=== PATIENT | male | born 1950 | race Caucasian/White ===

== ENCOUNTER → 2016-09-29 | Outpatient (CLI) | payer BC ==
--- NOTE | 2016-09-29 10:43 | DIAGNOSTIC IMAGING REPORT ---
RIGHT LOWER EXTREMITY VENOUS DOPPLER CLINICAL HISTORY: Right lower extremity pain. COMPARISON STUDY: No previous studies for comparison. TECHNIQUE: Sonography of the deep venous system of the right lower extremity was performed. Compression and augmentation were evaluated. FINDINGS: The right common femoral, superficial femoral and popliteal veins were compressible. Augmentation was normal. Flow was shown within the deep calf vessels. IMPRESSION: No evidence of deep venous thrombus within the right lower extremity. Electronically signed by: Glenn Cuello M.D. 09/29/2016 10:42 AM Dictated Date/Time: 09/29/2016 10:42 AM
== END | disposition home or self-care (01) ==
LOC: C.ULTRBC 10:10
PROVIDERS: ATTEND Orthopaedic Surgery
DX: M79.604 Pain in right leg (principal); M79.89 Other specified soft tissue disorders

== ENCOUNTER 2019-02-11 17:03 | Inpatient (IN) ==
[2019-02-11 17:57] LABS: Basophils # (auto) 0.01 K/uL (0-0.2); Basophils % (auto) 0.1 %; Eosinophils # (auto) 0.02 K/uL (0-0.5); Eosinophils % (auto) 0.1 %; Hematocrit (blood only) 42.8 % (42-52); Hemoglobin 14.5 g/dL (14.0-18.0); Immature Granulocytes # (auto) 0.04 K/uL (0.00-0.02); Immature Granulocytes % (auto) 0.3 %; Lymphocytes # (auto) 1.27 K/uL (1.2-3.4); Lymphocytes % (auto) 9.3 %; Mean Corpuscular Hgb Conc 33.9 g/dL (32-36); Mean Corpuscular Volume 87.7 fL (80-100); Mean Platelet Volume 10.2 fL (7.4-10.4); Monocytes # (auto) 1.48 K/uL (0.11-0.59); Monocytes % (auto) 10.9 %; Neutrophils # (auto) 10.81 K/uL (1.4-6.5); Neutrophils % (auto) 79.3 %; Platelet Count 208 K/uL (130-400); RDW Coefficient of Variation 14.6 % (11.5-14.5); RDW Standard Deviation 46.7 fL (36.4-46.3); Red Blood Count 4.88 M/uL (4.7-6.1); White Blood Count 13.63 K/uL (4.8-10.8)
[2019-02-11] MEDS ORDERED: CEFEPIME 2,000 MG/20 ML VIAL IV STA (17:57)
[2019-02-11 18:18] LABS: Albumin Level 3.1 gm/dl (3.4-5.0); BUN Creatinine Ratio 10.3 (10-20); Creatinine Clr Calc Pharmacy 91.1 ml/min; Est GFR (African American) 75.9; Est GFR (Non-African American) 65.5; Potassium 3.5 mmol/L (3.5-5.1)
[2019-02-11 18:20] LABS: Albumin Globulin Ratio 0.7 (0.9-2); Globulin 4.5 gm/dl (2.5-4.0); Total Protein 7.6 gm/dl (6.4-8.2)
--- NOTE | 2019-02-11 19:04 | History & Physical Report ---
Date of Service February 11, 2019 Assessment & Plan (1) Gram-negative bacteremia: Pt presented to ER yesterday with urinary frequency, fever. Yesterday WBC: 10, had POC lactic acid: 2.5. UA possible UTI. CT Abd/Pelvis no urinary calculi, no hydronephrosis. Pt was diagnosed with UTI, given dose Rocephin and was started on Bactrim. Today he returned secondary to blood culture: positive gram negative bacilli. Today denies urinary frequency or fever. Denies N/V. No flank or abdominal pain. Pending Urine culture. Today afebrile, P: 82, BP: 135/80, WBC: 13, normal renal functions Bacteremia. Possible urinary source -In ER was given cefepime -pending lactic acid -Continue cefepime -IVF -Echo r/o endocarditis -ID consult (2) Hyperglycemia: Glucose: 183 -A1c in am (3) HTN (hypertension): Stable -Continue metoprolol (4) HLD (hyperlipidemia): Statin currently on hold by PCP as pt was having myalgias (5) GERD (gastroesophageal reflux disease): -Continue PPI DVT Prophylaxis -Lovenox SQ Follows with Herbert Herndon PA-C for routine care Pt was seen and care coordinated with Dr Tamayo. See addendum History of Present Illness Chief Complaint: Abnormal labs Primary Care Provider: Herbert Herndon PA-C Pt is 68 y/o M with HTN, dyslipidemia, GERD, h/o basal cell CA nose presented to ER for abnormal labs. Patient was seen in ER yesterday 02/10/2019 for urinary frequency. Yesterday in ER he was noted to have a fever of 38.C with pulse: 105 and was diagnosed with UTI. He was given dose Rocephin and was started on Bactrim. He was instructed to return to ER Today blood culture positive gram negative bacilli. Pt states that he has been feeling better today and hasn't noticed fevers. He states no further urinary frequency today. Denies any nausea or vomiting. Yesterday was having left abdominal pain which reports has decreased today. Had negative CT abd/pelvis in ER yesterday. Denies diaphoresis, N/V/D/C, DIAZ, dizziness, syncope, vision changes, neck pain, CP, SOB, orthopnea, palpitations, cough, sore throat, choking, otalgia, rhinorrhea, flank pain, paresthesias, weakness, extremity weakness, extremity edema, rashes, hematuria. Allergies Allergy/AdvReac Type Severity Reaction Status Date / Time No Known Allergies Allergy Unverified 02/10/19 23:31 Home Medications Home Medications Medication Instructions Recorded Confirmed Type esomeprazole magnesium 40 mg PO DAILY 02/10/19 02/11/19 History loratadine 10 mg PO DAILY 02/10/19 02/11/19 History metoprolol tartrate 100 mg PO DAILY 02/10/19 02/11/19 History furosemide 20 mg PO DAILY PRN 02/11/19 02/11/19 History sulfamethoxazole-trimethoprim 1 tab PO Q12H 9 Days #18 tab 02/11/19 02/11/19 Rx [Bactrim DS] Past Med/Surg History Medical History Chronic back pain (Chronic) Basal cell carcinoma (Chronic) HLD (hyperlipidemia) (Chronic) GERD (gastroesophageal reflux disease) (Chronic) HTN (hypertension) (Chronic) No significant past medical history Surgical History History of colonoscopy (Resolved) Family History Other Breast cancer Social History Preferred Language: Bermudian Feels Safe at Home: Yes Smoking Status: Never smoker Hx Alcohol Use: Yes Alcohol type: hard liquor Alcohol Intake Frequency Comment: 3 drinks daily Hx Substance Use: No Review of Systems Review of Systems: All systems reviewed & are unremarkable except as noted in HPI & below Physical Exam Physical Exam: General: no acute distress, obese Head: normocephalic, atraumatic Eyes: PERRL, EOM's intact, conjunctiva non-injected, anicteric ENT: normal inspection external ears, nose, mucous membranes moist Neck: supple, trachea midline, non-tender Lungs: clear, no respiratory distress, no wheezing/rhonchi/rales CV: RRR, no murmur, Chest: non-tender to palpation, no pretibial edema Abd: normal BS, soft, non-tender, no CVA tenderness Ext: no cyanosis, no calf tenderness Neuro: A&O x 3, no focal deficits noted, normal affect Skin: warm, dry Results & Data Vital Signs (Past 12 Hours) Vital Signs Temp Pulse Resp BP Pulse Ox 02/11/19 17:08 37.1 C 82 18 135/80 97 Laboratory Results Short CBC 02/11/19 Range/Units 17:45 WBC 13.63 H (4.8-10.8) K/uL Hgb 14.5 (14.0-18.0) g/dL Hct 42.8 (42-52) % Plt Count 208 (130-400) K/uL BMP 02/11/19 17:45 Sodium 137 Potassium 3.5 Chloride 104 Carbon Dioxide 26 BUN 12 Creatinine 1.15 Glucose 183 H Calcium 9.0 Liver Function 02/11/19 Range/Units 17:45 Total Bilirubin 1.0 (0.2-1) mg/dl AST 12 L (15-37) U/L ALT 24 (12-78) U/L Alkaline Phosphatase 89 (45-117) U/L Albumin 3.1 L (3.4-5.0) gm/dl Supervising Physician Co-Signing Physician Notes Patient is a 68-year-old male with history of hypertension, dyslipidemia, obesity and other problems presents with a history of increased urinary devaughn quency, fever since yesterday. Patient was thought to have an urinary tract infection and was started on Bactrim by ED physician yesterday. Patient was instructed to return back today due to possible blood cultures.. Patient is growing gram-negative bacilli in 1 of the [address] abdomen showed no acute findings. On exam patient is obese, no distress, normocephalic atraumatic, lungs are clear to auscultation, distant heart sounds, no murmur, abdomen soft nontender, no pedal edema, no focal neurological deficits. Patient is admitted for management of gram-negative bacteremia likely secondary to urinary tract infection. We will start him on IV cefepime, IV fluids, check echo. De-escalate antibiotics as per the cultures. I personally reviewed the record. Patient is interviewed and examined at bedside. Patient's care is coordinated with Cristiana Broussard PA-C. Please refer to the documentation above for details of patient's presentation and for discussion of other issues.
--- NOTE | 2019-02-11 19:58 | Emergency Department Note ---
Entered by Myra Marin acting as a scribe for ED Provider Note CHIEF COMPLAINT: Abnormal labs HISTORY OF PRESENT ILLNESS: The patient is a 68 year old male who presents to the Emergency Room with complaints of an episode of abnormal labs beginning today. The patient states that he was diagnosed with a urinary tract infection yesterday after having increased frequency of urination and abdominal pain. The patient states that he began antibiotics last night, and states that these somewhat relieved his symptoms. He states that he took Motrin today for his symptoms. The patient states that he feels as though he has a sinus headache. The patient's blood cultures came back positive. Pt denies LOC, current fevers, chills, diaphoresis, visual changes, neck pain, chest pain, breathing difficulties, diarrhea, nausea, vomiting, abdominal pain, back pain, melena, hematochezia, numbness, weakness, lymphadenopathy, rash, or other complaints. REVIEW OF SYSTEMS: See HPI for pertinent positives and negatives. A total of ten systems were reviewed and were otherwise negative. PMHx/PSHx: UTI SOCIAL HISTORY: Patient lives at home. PHYSICAL EXAM: GENERAL: Awake, alert, well-appearing, in no distress HENT: Normocephalic, atraumatic. Oropharynx unremarkable. EYES: PERRL. Normal conjunctiva. Sclera non-icteric. NECK: Inspection normal. Non-tender. Supple. No nuchal rigidity. FROM. No masses. RESPIRATORY: Clear to auscultation. No wheezes. No rales. Normal respiratory effort. CARDIAC: Normal rate. Normal rhythm. No murmurs. No rubs. Extremities warm and well perfused. Pulses equal. No JVD. GI: Soft, non-distended. No tenderness to palpation. No rebound or guarding. No masses. RECTAL: Deferred. MUSCULOSKELETAL: Atraumatic. Chest examination reveals no tenderness. The back is symmetrical on inspection without obvious abnormality. There is no CVA tenderness to palpation. No joint edema. LOWER EXTREMITIES: Calves are equal size bilaterally and non-tender. No edema. No discoloration. NEURO: Normal sensorium. No sensory or motor deficits noted. SKIN: No rash or jaundice noted. EMERGENCY DEPARTMENT COURSE: 1733: Past medical records reviewed. The patient was evaluated in room C7, and a complete history and physical examination were performed. 1804: I discussed the case with Cristiana Anton PA-C who accepts the patient for further evaluation. 1930: Patient was reassessed and is resting comfortably. Awaiting admission. MEDICAL DECISION MAKING: Patient presented to the emergency department due to abnormal findings on his blood culture. He was growing a gram-negative bacteria. The patient feels better than he did yesterday. Blood work was obtained. The patient does have a leukocytosis of 13,000. He has no hypotension or tachycardia. He is afebrile at this time. Differential includes sepsis from urinary source, bacteremia, UTI, as well as others. The patient appears to have a gram-negative bacteremia likely from his urinary source. He received IV cefepime. He denied any pain. A consultation [facility] with the [facility]. Patient was evaluated in the ER and admitted for further treatment. IMPRESSION: Gram negative bacteremia UTI PLAN: Admit The scribe's documentation has been prepared under my direction and personally reviewed by me in its entirety. I confirm that the note above accurately reflects all work, treatment, procedures, and medical decision making performed by me. Impression & Plan Gram-negative bacteremia, UTI (urinary tract infection) Past Med/Surg History Medical History Chronic back pain (Chronic) Basal cell carcinoma (Chronic) HLD (hyperlipidemia) (Chronic) GERD (gastroesophageal reflux disease) (Chronic) HTN (hypertension) (Chronic) No significant past medical history Surgical History History of colonoscopy (Resolved) Family History Other Breast cancer Social History Preferred Language: Slovenian Feels Safe at Home: Yes Smoking Status: Never smoker Hx Alcohol Use: Yes Alcohol type: hard liquor Alcohol Intake Frequency Comment: 3 drinks daily Hx Substance Use: No Results & Data Vital Signs Vital Signs - 24 hr 02/11/19 17:08 02/11/19 17:59 02/11/19 18:59 Temperature 37.1 C Temperature Source Oral Sepsis Recent Fever Within 48 Hours No Sepsis New/Unexplained Change in Mental Status No Sepsis Action Taken by Nursing No Action Required Pulse Rate 82 Pulse Rate [Right Finger] 76 Respiratory Rate 18 14 Respiratory Effort / Characteristics Non-Labored Respiratory Depth Normal Normal Respiratory Pattern Regular Blood Pressure 135/80 Blood Pressure [Right Arm] 147/87 H Blood Pressure Mean 98 Blood Pressure Mean [Right Arm] 107 Blood Pressure Position Sitting Pulse Oximetry 97 95 Oxygen Delivery Method Room Air Room Air Room Air 02/11/19 19:44 Temperature Temperature Source Sepsis Recent Fever Within 48 Hours Sepsis New/Unexplained Change in Mental Status Sepsis Action Taken by Nursing Pulse Rate 79 Pulse Rate [Right Finger] Respiratory Rate 14 Respiratory Effort / Characteristics Respiratory Depth Respiratory Pattern Blood Pressure 147/87 H Blood Pressure [Right Arm] Blood Pressure Mean Blood Pressure Mean [Right Arm] Blood Pressure Position Pulse Oximetry 95 Oxygen Delivery Method Room Air Home Medications Current Medication List: was personally reviewed by me Laboratory Data Attestation: I reviewed the patient's lab results. Result diagrams: 02/11/19 17:45 02/11/19 17:45 Lab Results 02/11/19 02/11/19 02/11/19 Range/Units 17:45 17:45 19:20 WBC 13.63 H (4.8-10.8) K/uL RBC 4.88 (4.7-6.1) M/uL Hgb 14.5 (14.0-18.0) g/dL Hct 42.8 (42-52) % MCV 87.7 (80-100) fL MCH 29.7 (25-34) pg MCHC 33.9 (32-36) g/dL RDW Std Deviation 46.7 H (36.4-46.3) fL RDW Coeff of [place] 14.6 H (11.5-14.5) % Plt Count 208 (130-400) K/uL MPV 10.2 (7.4-10.4) fL Immature Gran % (Auto) 0.3 % Neut % (Auto) 79.3 % Lymph % (Auto) 9.3 % [place] % (Auto) 10.9 % Eos % (Auto) 0.1 % Baso % (Auto) 0.1 % Immature Gran # (Auto) 0.04 H (0.00-0.02) K/uL Neut # (Auto) 10.81 H (1.4-6.5) K/uL Lymph # (Auto) 1.27 (1.2-3.4) K/uL [place] # (Auto) 1.48 H (0.11-0.59) K/uL Eos # (Auto) 0.02 (0-0.5) K/uL Baso # (Auto) 0.01 (0-0.2) K/uL Sodium 137 (136-145) mmol/L Potassium 3.5 (3.5-5.1) mmol/L Chloride 104 (98-107) mmol/L Carbon Dioxide 26 (21-32) mmol/L Anion Gap 7.0 (3-11) BUN 12 (7-18) mg/dl Creatinine 1.15 (0.6-1.4) mg/dl Est Cr Clr Drug Dosing 91.1 ml/min Est GFR ( Amer) 75.9 Est GFR (Non-Af Amer) 65.5 BUN/Creatinine Ratio 10.3 (10-20) Glucose 183 H (70-99) mg/dl Lactate 1.8 (0.4-2.0) mmol/L Calcium 9.0 (8.5-10.1) mg/dl Total Bilirubin 1.0 (0.2-1) mg/dl AST 12 L (15-37) U/L ALT 24 (12-78) U/L Alkaline Phosphatase 89 (45-117) U/L Total Protein 7.6 (6.4-8.2) gm/dl Albumin 3.1 L (3.4-5.0) gm/dl Globulin 4.5 H (2.5-4.0) gm/dl Albumin/Globulin Ratio 0.7 L (0.9-2) Administered Medications Discontinued Medications Cefepime HCl (Maxipime) 2,000 mg in 20 mls @ 5 mls/min IV NOW STA; Protocol Stop: 02/11/19 18:00 Last Admin: 02/11/19 18:12 Dose: 5 mls/min Documented by: [id number] Blood Pressure Blood Pressure Findings: Normal blood pressure Discharge Plan Visit Data Chief Complaint: Referred by Doctor Stated Complaint: INFECTION IN BLOOD - TOLD COME IN FOR IV ED Provider: Herbert Mathew Discharge Problem: Gram-negative bacteremia, UTI (urinary tract infection) Patient Disposition: Being Evaluated by Hospitalist Discharge Instructions Interventions: ED Discharge Assessment Last Done: 02/11/19 19:44 Forms Stand Alone Forms: My [facility] Social Moov Prescriptions Prescriptions: No Action metoprolol tartrate 100 mg tablet 100 mg PO DAILY RF: 0 esomeprazole magnesium 40 mg capsule,delayed release(DR/EC) 40 mg PO DAILY RF: 0 loratadine 10 mg tablet 10 mg PO DAILY RF: 0 sulfamethoxazole-trimethoprim [Bactrim DS] 800-160 mg tablet 1 tab PO Q12H 9 Days Qty: 18 RF: 0 furosemide 20 mg Tablet 20 mg PO DAILY PRN (Reason: Edema) RF: 0 Referrals Referrals: Herbert Herndon PA-C [Primary Care Provider] - Discharge Problem: UTI (urinary tract infection) Qualifiers: Urinary tract infection type: site unspecified Hematuria presence: without hematuria Qualified Code(s): N39.0 - Urinary tract infection, site not specified The scribe's documentation has been prepared under my direction and personally reviewed by me in its entirety. I confirm that the note above accurately reflects all work, treatment, procedures, and medical decision making performed by me.
[2019-02-11] MEDS ORDERED: POLYETHYLENE (MIRALAX) 17 GM PACK PO PRN (20:09)
[2019-02-11] MEDS ORDERED: SODIUM CHLORIDE 0.9% 1000ML 1,000 ML IV SCH (20:09)
[2019-02-11] MEDS ORDERED: ACETAMINOPHEN 325 MG TAB PO PRN (20:09)
[2019-02-11] MEDS ORDERED: CEFEPIME CONSULT ACTIVE PRN (20:17)
[2019-02-11 21:24] LABS: INR 1.1 (0.9-1.1); Prothrombin Time 10.9 Seconds (9.0-12.0)
[2019-02-11] MEDS: ENOXAPARIN INJ 40 MG/0.4 ML SYR SQ SCH (22:05)
[2019-02-11 22:44] LABS: Appearance Urine Clear (Clear); Bacteria Urine Automated Negative (Negative); Bilirubin Urine Negative (Negative); Blood Urine Negative (Negative); Color Urine Dark Yellow; Epithelial Cell Urine Auto >30 /lpf (0-5); Glucose Urine UA Negative (Negative); Ketones Urine Negative (Negative); Leukocyte Esterase Urine Trace (Negative); Nitrite Urine Positive (Negative); Protein Urine 1+ (Negative); RBC Urine Automated 0-4 /hpf (0-4); Specific Gravity Urine 1.026 (1.000-1.030); Urobilinogen Urine Negative (Negative); pH Urine 6.5 (4.5-7.5)
[2019-02-12] MEDS: CEFEPIME 2,000 MG in SYRINGE 7.5 ML IV SCH ×3 (04:02→18:09)
[2019-02-12 05:55] LABS: Basophils # (auto) 0.01 K/uL (0-0.2); Basophils % (auto) 0.1 %; Eosinophils # (auto) 0.04 K/uL (0-0.5); Eosinophils % (auto) 0.3 %; Hematocrit (blood only) 40.9 % (42-52); Immature Granulocytes # (auto) 0.04 K/uL (0.00-0.02); Immature Granulocytes % (auto) 0.3 %; Lymphocytes # (auto) 1.25 K/uL (1.2-3.4); Lymphocytes % (auto) 10.5 %; Mean Corpuscular Hgb Conc 34.2 g/dL (32-36); Mean Corpuscular Volume 87.2 fL (80-100); Mean Platelet Volume 9.9 fL (7.4-10.4); Monocytes % (auto) 10.1 %; Neutrophils # (auto) 9.37 K/uL (1.4-6.5); Neutrophils % (auto) 78.7 %; Platelet Count 198 K/uL (130-400); RDW Coefficient of Variation 14.6 % (11.5-14.5); RDW Standard Deviation 46.8 fL (36.4-46.3); Red Blood Count 4.69 M/uL (4.7-6.1); White Blood Count 11.91 K/uL (4.8-10.8)
[2019-02-12 06:28] LABS: BUN Creatinine Ratio 10.4 (10-20); Calcium 8.8 mg/dl (8.5-10.1); Creatinine Clr Calc Pharmacy 96.1 ml/min; Est GFR (Non-African American) 69.9; Potassium 3.8 mmol/L (3.5-5.1)
[2019-02-12] MEDS ORDERED: PERFLUTREN LIPID MICROSPHERE (DEFINITY) IV ONE (07:13)
[2019-02-12 07:32] LABS: Estimated Average Glucose 151 mg/dl; Hemoglobin A1C 6.9 % (4.5-5.6)
[2019-02-12] MEDS: PANTOprazole 40 MG TAB PO SCH (08:11)
[2019-02-12] MEDS: LORATADINE 10 MG TAB PO SCH (08:11)
[2019-02-12] MEDS: METOPROLOL TARTRATE 100 MG TAB PO SCH (08:11)
--- NOTE | 2019-02-12 08:45 | Hospitalist Progress Note ---
Date of Service February 12, 2019 Assessment & Plan (1) Gram-negative bacteremia: Pt was in ED a day before for urinary frequency with fever 38 C. Received a dose of IV Rocephin and was started on Bactrim. CT abd/pelvis on 02/10-no urinary calculi, hydronephrosis or pyelonephritis. Patient felt better after antibiotics. ER called him back the next day as blood culture came back positive for gram-negative bacilli. -Afebrile, Mild leucocytosis- trending down -On IV Cefepime - Day 2 -IVF discontinued -Urine cx- 02/10 - Three different types of organisms growing, repeat collection recommended (repeated but already received 2 days of antibx). -Blood culture 1/2- GNB, follow up C/S results. Repeat blood cultures ordered today (2) Hyperglycemia: -A1c - 6.9 (3) HTN (hypertension): Stable -Continue metoprolol (4) HLD (hyperlipidemia): Statin currently on hold by PCP as pt was having myalgias (5) GERD (gastroesophageal reflux disease): -Continue PPI OBESITY DVT Prophylaxis -Lovenox SQ DISPOSITION Medical management in progress. Awaiting blood culture results Likely discharge tomorrow once blood culture results are back Follows with Herbert Herndon PA-C for routine care Subjective Patient is feeling well. Denies any urinary frequency, burning micturition, nausea, vomiting, abdominal pain, flank pain. No fever, chills. Physical Exam Physical Exam: GENERAL- AAOX3, No acute distress, OBESE + LUNGS- Air entry bilaterally equal. No rales, rhonchi, crackles, wheezes heard. HEART- Regular rate and rhythm. No murmurs ABDOMEN- Soft, non tender, non distended, Bowel sounds heard. EXTREMITIES- Good peripheral pulses, no edema Results & Data Vital Signs (Past 12 Hours) Vital Signs Temp Pulse Pulse Resp BP Pulse Ox 02/12/19 07:59 36.8 C 77 18 135/77 95 02/12/19 04:00 36.4 C L 81 20 153/74 H 95 02/12/19 00:01 37.3 C 77 18 150/70 H 96 02/12/19 00:00 82 02/11/19 22:00 84
--- NOTE | 2019-02-12 10:15 | Infectious Disease Consult ---
Date of Consultation February 12, 2019 Assessment & Plan (1) Gram-negative bacteremia: Patient with acute urinary tract infection with gram-negative bacteremia. Appears to be clinically responding to antibiotics given. Would continue on cefepime for now pending final identification and sensitivities. Hopefully will be able to transition to oral antibiotics. Will follow. (2) Urinary tract infection: History of Present Illness Reason for Consultation: Gram-negative bacteremia Attending Physician: Heather Haines History of Present Illness 68-year-old male with history of hypertension, hyperlipidemia, prior urinary tract infection approximately 4 years ago, periodically followed by urology without major abnormalities found, who was admitted to the hospital for positive blood cultures for gram-negative bacilli. Patient was seen Monday in the emergency room with several days of progressively worsening dysuria and frequency with abdominal pain and fever. Was given IV ceftriaxone and discharged on oral Bactrim, but was called back yesterday when blood cultures grew gram-negative bacilli. He had already been feeling better. Has been started on IV cefepime, is currently afebrile without major complaints. Urinary symptoms have improved. Pain in abdomen currently minimal. Follow-up cultures are pending. Allergies Allergy/AdvReac Type Severity Reaction Status Date / Time No Known Allergies Allergy Unverified 02/10/19 23:31 Home Medications Home Medications Medication Instructions Recorded Confirmed Type esomeprazole magnesium 40 mg PO DAILY 02/10/19 02/11/19 History loratadine 10 mg PO DAILY 02/10/19 02/11/19 History metoprolol tartrate 100 mg PO DAILY 02/10/19 02/11/19 History furosemide 20 mg PO DAILY PRN 02/11/19 02/11/19 History sulfamethoxazole-trimethoprim 1 tab PO Q12H 9 Days #18 tab 02/11/19 02/11/19 Rx [Bactrim DS] Patient History Medical History Chronic back pain (Chronic) Basal cell carcinoma (Chronic) HLD (hyperlipidemia) (Chronic) GERD (gastroesophageal reflux disease) (Chronic) HTN (hypertension) (Chronic) No significant past medical history Surgical History History of colonoscopy (Resolved) Family History Other Breast cancer Social History Preferred Language: Albanian Communication Ability: Effective Beliefs That Will Affect Care: None Current Living Situation: Spouse Other Information That Helps Us Care for You: No Feels Safe at Home: Yes Safety Concerns: Feels Safe At This Time Smoking Status: Never smoker Hx Alcohol Use: Yes Alcohol type: hard liquor Alcohol Intake Frequency Comment: 3 drinks daily Hx Substance Use: No Review of Systems Review of Systems: All systems reviewed & are unremarkable except as noted in HPI & below Physical Exam Constitutional: WD/WN, vitals as above + obese Eyes: PERRL, conjunctivae normal, anicteric sclerae ENMT: external ear and nose normal, oropharynx normal Neck: trachea midline, no thyromegaly Respiratory: normal respiratory effort, lungs clear to auscultation no respiratory distress Cardiovascular: RRR, no murmur, no edema Heart Sounds: no gallop and no cardiac rub Gastrointestinal (Abdomen): normal bowel sounds, soft, nontender, no hepatosplenomegaly Musculoskeletal: Head/Neck/Chest: normocephalic, head atraumatic and neck supple Extremities: extremities normal to inspection Skin: no rashes, warm and dry no lesions Neurologic: patellar DTR's 2+ bilat, sensation intact Psychiatric: A+Ox3, euthymic affect Lymphatic: no cervical or axillary lymphadenopathy no inguinal lymphadenopathy Results & Data Vital Signs (Past 12 Hours) Vital Signs Temp Pulse Pulse Resp BP Pulse Ox 02/12/19 07:59 36.8 C 77 18 135/77 95 02/12/19 04:00 36.4 C L 81 20 153/74 H 95 02/12/19 00:01 37.3 C 77 18 150/70 H 96 02/12/19 00:00 82 Laboratory Results Short CBC 02/11/19 02/12/19 Range/Units 17:45 05:42 WBC 13.63 H 11.91 H (4.8-10.8) K/uL Hgb 14.5 14.0 (14.0-18.0) g/dL Hct 42.8 40.9 L (42-52) % Plt Count 208 198 (130-400) K/uL BMP 02/11/19 02/12/19 17:45 05:42 Sodium 137 138 Potassium 3.5 3.8 Chloride 104 104 Carbon Dioxide 26 25 BUN 12 11 Creatinine 1.15 1.09 Glucose 183 H 132 H Calcium 9.0 8.8 Liver Function 02/11/19 Range/Units 17:45 Total Bilirubin 1.0 (0.2-1) mg/dl AST 12 L (15-37) U/L ALT 24 (12-78) U/L Alkaline Phosphatase 89 (45-117) U/L Albumin 3.1 L (3.4-5.0) gm/dl Urine 02/11/19 Range/Units 21:45 Urine Color Dark Yellow Urine Appearance Clear (Clear) Urine pH 6.5 (4.5-7.5) Ur Specific [employer] 1.026 (1.000-1.030) Urine Protein 1+ H (Negative) Urine Glucose (UA) Negative (Negative) Diagnostic Findings Acct: [id number] Status: DEP ER : 1950 [facility] Date: 02/10/19 Age: 68 Sex: M Dis Date: Loc: Emergency Department Spec: [id number] Collected: 02/10/19 Received: 02/10/19-[address]: Herbert Mathew MD Source: Blood OV Order: Ordered: Blood Culture Comments: Comment Default is separate sites, same time Procedure Result Verified Site Blood Culture Aerobic Preliminary 02/12/19-08 Organism 1 Gram negative bacilli Sens Sensitivities to Follow Phoned positive Blood Culture Gram Stain report to DMITRY ANAND on 02/11/19 at 1519 [place] [id number]. [place] [id number]. Blood Culture Anaerobic Preliminary 02/12/19-0100 No growth in Anaerobic bottle after 24 hours. Name: FRANCOISE BARRERA III : 1950 PAGE 1 Printed: 02/12/[address] OF THE ABDOMEN AND PELVIS WITHOUT CONTRAST CLINICAL HISTORY: Left-sided abdominal pain and fever. COMPARISON STUDY: No previous studies for comparison. TECHNIQUE: Axial images of the abdomen and pelvis were obtained without IV contrast. Images were reviewed in the axial, sagittal, and coronal planes. Automated exposure control was utilized for the study. A dose lowering technique was utilized adhering to the principles of ALARA. FINDINGS: Imaged portions of the lower chest demonstrate multiple old left-sided rib fractures. No renal, ureteral or bladder calculi are present. No hydronephrosis or hydroureter. Evaluation of the remainder of the abdomen and pelvis is suboptimal on this unenhanced exam. Unenhanced images of the liver, spleen, adrenal glands and pancreas are unremarkable. There is no peripancreatic or pericholecystic infiltration. No biliary or pancreatic ductal dilatation. The appendix is unremarkable. There is no ascites or lymphadenopathy. No suspicious skeletal lesions are present. There is no evidence for a bowel obstruction. IMPRESSION: 1. No urinary calculi or hydronephrosis. 2. No acute process within the abdomen or pelvis on unenhanced exam. Electronically signed by: Glenn Cuello M.D. 02/11/2019 7:14 AM Dictated: 02/11/19709 Transcribed: 02/11/19709 (1) Urinary tract infection Hematuria presence: with hematuria Urinary tract infection type: site unspecified Qualified Code(s): N39.0 - Urinary tract infection, site not specified; R31.9 - Hematuria, unspecified
[2019-02-12] MEDS: ENOXAPARIN INJ 40 MG/0.4 ML SYR SQ SCH (21:39)
[2019-02-13] MEDS: CEFEPIME 2,000 MG in SYRINGE 7.5 ML IV SCH ×2 (01:52→11:10)
[2019-02-13 06:38] LABS: Basophils # (auto) 0.01 K/uL (0-0.2); Basophils % (auto) 0.2 %; Eosinophils % (auto) 1.6 %; Hemoglobin 13.8 g/dL (14.0-18.0); Immature Granulocytes # (auto) 0.04 K/uL (0.00-0.02); Immature Granulocytes % (auto) 0.6 %; Lymphocytes # (auto) 1.09 K/uL (1.2-3.4); Lymphocytes % (auto) 17.5 %; Mean Corpuscular Hgb Conc 33.7 g/dL (32-36); Monocytes # (auto) 1.13 K/uL (0.11-0.59); Monocytes % (auto) 18.1 %; Neutrophils # (auto) 3.86 K/uL (1.4-6.5); Platelet Count 224 K/uL (130-400); RDW Coefficient of Variation 14.3 % (11.5-14.5); RDW Standard Deviation 46.2 fL (36.4-46.3); Red Blood Count 4.66 M/uL (4.7-6.1); White Blood Count 6.23 K/uL (4.8-10.8)
[2019-02-13 07:09] LABS: BUN Creatinine Ratio 13.2 (10-20); Calcium 8.6 mg/dl (8.5-10.1); Creatinine Clr Calc Pharmacy 101.7 ml/min; Est GFR (African American) 86.7; Est GFR (Non-African American) 74.8
[2019-02-13] MEDS: LORATADINE 10 MG TAB PO SCH (09:01)
[2019-02-13] MEDS: PANTOprazole 40 MG TAB PO SCH (09:01)
[2019-02-13] MEDS: METOPROLOL TARTRATE 100 MG TAB PO SCH (09:02)
--- NOTE | 2019-02-13 11:25 | Hospitalist Progress Note ---
Date of Service February 13, 2019 Assessment & Plan (1) Gram-negative bacteremia: Pt was in ED a day before for urinary frequency with fever 38 C. Received a dose of IV Rocephin and was started on Bactrim. CT abd/pelvis on 02/10-no urinary calculi, hydronephrosis or pyelonephritis. Patient felt better after antibiotics. ER called him back the next day as blood culture came back positive for gram-negative bacilli. -Clinically a lot better and denies any acute symptoms -No fever and no chills the white count is normalized -On IV Cefepime - Day 3 -Urine cx- 02/10 - Three different types of organisms growing, repeat collection recommended (repeated but already received 2 days of antibx). -Blood culture 1/2- GNB-pansensitive. -Repeat blood cultures is pending -Appreciate ID input and recommendation -Likely to have oral antibiotic and discharge home today (2) Hyperglycemia: -A1c - 6.9 -Blood sugar remains stable (3) HTN (hypertension): Stable -Continue metoprolol (4) HLD (hyperlipidemia): Statin currently on hold by PCP as pt was having myalgias (5) GERD (gastroesophageal reflux disease): -Continue PPI OBESITY DVT Prophylaxis -Lovenox SQ DISPOSITION Medical management in progress. Awaiting blood culture results Likely discharge this afternoon Subjective 02/13 Patient was seen and examined in medical floor He is a 68 y/o M with HTN, dyslipidemia, GERD, h/o basal cell CA nose admitted with E. coli bacteremia likely secondary to UTI He does not have any complaints today Denies any fever and/or chills, any nausea and/or vomiting or any problem with urination Review of Systems Review of Systems: All systems reviewed and are unremarkable except as noted below Genitourinary: no dysuria, no urinary frequency and no urinary hesitancy Physical Exam Physical Exam: No apparent distress at rest Constitutional: well developed, well nourished and + obese Eyes: PERRL, conjunctivae normal, anicteric sclerae ENMT: external ear and nose normal, oropharynx normal Neck: trachea midline, no thyromegaly Respiratory: normal respiratory effort, lungs clear to auscultation no respiratory distress Cardiovascular: RRR, no murmur, no edema Heart Sounds: no gallop and no cardiac rub Gastrointestinal (Abdomen): Inspection/Auscultation: abdomen normal to inspection Percussion/Palpation: abdomen soft; abdomen nontender No tenderness in renal angles Musculoskeletal: Head/Neck/Chest: normocephalic, head atraumatic and neck supple Extremities: extremities normal to inspection Skin: no rashes, warm and dry no lesions Neurologic: patellar DTR's 2+ bilat, sensation intact Psychiatric: A+Ox3, euthymic affect Lymphatic: no cervical or axillary lymphadenopathy no inguinal lymphadenopathy Results & Data Vital Signs (Past 12 Hours) Vital Signs Temp Pulse Pulse Resp BP Pulse Ox 02/13/19 07:38 69 02/13/19 06:57 36.8 C 65 17 152/75 H 96 02/13/19 03:57 36.8 C 69 18 137/72 97 02/13/19 01:45 75 Laboratory Results Short CBC 02/13/19 Range/Units 06:17 WBC 6.23 (4.8-10.8) K/uL Hgb 13.8 L (14.0-18.0) g/dL Hct 41.0 L (42-52) % Plt Count 224 (130-400) K/uL [facility] 02/13/19 06:17 Sodium 138 Potassium 4.0 Chloride 106 Carbon Dioxide 25 BUN 14 Creatinine 1.03 Glucose 131 H Calcium 8.6 Medications Administered Current Inpatient Medications Acetaminophen (Tylenol) 650 mg PO Q4H PRN PRN Reason: Pain or Fever Stop: 03/13/19 20:08 Last Admin: 02/12/19 05:34 Dose: 650 mg Documented by: Enoxaparin Sodium (Lovenox) 40 mg SQ Q24H [facility] [place] Stop: 03/13/19 21:59 Last Admin: 02/12/19 21:39 Dose: Not Given Documented by: Cefepime HCl 2,000 mg/ Syringe 20 mls @ 5 mls/min IV Q8H [facility] [place]; Protocol Stop: 02/26/19 01:59 Last Admin: 02/13/19 11:10 Dose: 5 mls/min Documented by: Loratadine (Claritin) 10 mg PO DAILY [facility] [place] Stop: 03/14/19 08:59 Last Admin: 02/13/19 09:01 Dose: 10 mg Documented by: Metoprolol Tartrate (Lopressor) 100 mg PO DAILY [facility] [place] Stop: 03/14/19 08:59 Last Admin: 02/13/19 09:02 Dose: 100 mg Documented by: Miscellaneous Information (Cefepime Consult Active) 1 ea N/A UD PRN PRN Reason: Consult Stop: 03/13/19 20:16 Pantoprazole Sodium (Protonix) 40 mg PO DAILY [facility] Stop: 03/14/19 08:59 Last Admin: 02/13/19 09:01 Dose: 40 mg Documented by: Polyethylene Glycol (Miralax Powder Packet) 17 gm PO DAILY PRN PRN Reason: Constipation Stop: 03/13/19 20:08
--- NOTE | 2019-02-13 14:31 | Infectious Disease Progress Nt ---
Date of Service February 13, 2019 Assessment & Plan (1) Gram-negative bacteremia: Patient with acute urinary tract infection with E. coli bacteremia. Appears to be clinically responding to antibiotics given. Given negative follow-up cultures, could transition to oral Bactrim to complete 14 days Rx. Would have patient f/u with urology as outpatient given 2nd UTI. (2) Urinary tract infection: Subjective Patient seen in follow-up for urinary tract infection with bacteremia. Blood cultures have grown sensitive E. coli. Patient feeling better, offers no new complaints. Remains afebrile. Review of Systems Review of Systems: All systems reviewed & are unremarkable except as noted in HPI & below Physical Exam Constitutional: WD/WN, vitals as above + obese Eyes: PERRL, conjunctivae normal, anicteric sclerae ENMT: external ear and nose normal, oropharynx normal Neck: trachea midline, no thyromegaly Respiratory: normal respiratory effort, lungs clear to auscultation no respiratory distress Cardiovascular: RRR, no murmur, no edema Heart Sounds: no gallop and no cardiac rub Gastrointestinal (Abdomen): normal bowel sounds, soft, nontender, no hepatosplenomegaly Musculoskeletal: Head/Neck/Chest: normocephalic, head atraumatic and neck supple Extremities: extremities normal to inspection Skin: no rashes, warm and dry no lesions Neurologic: patellar DTR's 2+ bilat, sensation intact Psychiatric: A+Ox3, euthymic affect Lymphatic: no cervical or axillary lymphadenopathy no inguinal lymphadenopathy Results & Data Vital Signs (Past 12 Hours) Vital Signs Temp Pulse Pulse Resp BP BP Pulse Ox 02/13/19 11:27 37.1 C 40 L 20 155/91 H 94 02/13/19 07:38 69 02/13/19 06:57 36.8 C 65 17 152/75 H 96 02/13/19 03:57 36.8 C 69 18 137/72 97 Laboratory Results Short CBC 02/13/19 Range/Units 06:17 WBC 6.23 (4.8-10.8) K/uL Hgb 13.8 L (14.0-18.0) g/dL Hct 41.0 L (42-52) % Plt Count 224 (130-400) K/uL [facility] 02/13/19 06:17 Sodium 138 Potassium 4.0 Chloride 106 Carbon Dioxide 25 BUN 14 Creatinine 1.03 Glucose 131 H Calcium 8.6 Diagnostic Findings Microbiology 02/12/19 12:56 Blood Aerobic Blood Culture - Preliminary No growth in Aerobic bottle after 24 hours. 02/12/19 12:56 Blood Anaerobic Blood Culture - Preliminary No growth in Anaerobic bottle after 24 hours. 02/12/19 13:04 Blood Aerobic Blood Culture - Preliminary No growth in Aerobic bottle after 24 hours. 02/12/19 13:04 Blood Anaerobic Blood Culture - Preliminary No growth in Anaerobic bottle after 24 hours. (1) Urinary tract infection Hematuria presence: with hematuria Urinary tract infection type: site unspecified Qualified Code(s): N39.0 - Urinary tract infection, site not specified; R31.9 - Hematuria, unspecified
[2019-02-13] MEDS ORDERED: SULFAMETHOXAZOLE/TRIMETHOPRIM DS 800/160MG TAB PO SCH (21:00)
--- NOTE | 2019-02-14 07:26 | Discharge Summary ---
Date of Service February 14, 2019 Admission HPI Per Admitting Provider Pt is 68 y/o M with HTN, dyslipidemia, GERD, h/o basal cell CA nose presented to ER for abnormal labs. Patient was seen in ER yesterday 02/10/2019 for urinary frequency. Yesterday in ER he was noted to have a fever of 38.C with pulse: 105 and was diagnosed with UTI. He was given dose Rocephin and was started on Bactrim. He was instructed to return to ER Today blood culture positive gram negative bacilli. Pt states that he has been feeling better today and hasn't noticed fevers. He states no further urinary frequency today. Denies any nausea or vomiting. Yesterday was having left abdominal pain which reports has d ecreased today. Had negative CT abd/pelvis in ER yesterday. Denies diaphoresis, N/V/D/C, DIAZ, dizziness, syncope, vision changes, neck pain, CP, SOB, orthopnea, palpitations, cough, sore throat, choking, otalgia, rhinorrhea, flank pain, paresthesias, weakness, extremity weakness, extremity edema, rashes, hematuria. Admission Exam Per Admitting Provider Physical Exam: General: no acute distress, obese Head: normocephalic, atraumatic Eyes: PERRL, EOM's intact, conjunctiva non-injected, anicteric ENT: normal inspection external ears, nose, mucous membranes moist Neck: supple, trachea midline, non-tender Lungs: clear, no respiratory distress, no wheezing/rhonchi/rales CV: RRR, no murmur, Chest: non-tender to palpation, no pretibial edema Abd: normal BS, soft, non-tender, no CVA tenderness Ext: no cyanosis, no calf tenderness Neuro: A&O x 3, no focal deficits noted, normal affect Skin: warm, dry Principal Diagnosis Gram-negative bacteremia secondary to UTI, hypertension Discharge Exam Constitutional well developed, well nourished and + obese Eyes PERRL, conjunctivae normal, anicteric sclerae ENMT external ear and nose normal, oropharynx normal Neck trachea midline, no thyromegaly Respiratory normal respiratory effort, lungs clear to auscultation no respiratory distress Cardiovascular RRR, no murmur, no edema Heart Sounds: no gallop and no cardiac rub Gastrointestinal (Abdomen) Inspection/Auscultation: abdomen normal to inspection Percussion/Palpation: abdomen soft; abdomen nontender Musculoskeletal Head/Neck/Chest: normocephalic, head atraumatic and neck supple Extremities: extremities normal to inspection Skin no rashes, warm and dry no lesions Neurologic patellar DTR's 2+ bilat, sensation intact Psychiatric A+Ox3, euthymic affect Lymphatic no cervical or axillary lymphadenopathy no inguinal lymphadenopathy Discharge Data Allergies Allergy/AdvReac Type Severity Reaction Status Date / Time No Known Allergies Allergy Unverified 02/10/19 23:31 Consultations 02/11/19 18:12 ED Decision to Admit Stat 02/11/19 20:09 Consult Case Management - Discharge Planning Routine Consult Infectious Diseases Routine Hospital Course (1) Gram-negative bacteremia: Pt was in ED a day before for urinary frequency with fever 38 C. Received a dose of IV Rocephin and was started on Bactrim. CT abd/pelvis on 02/10-no urinary calculi, hydronephrosis or pyelonephritis. Patient felt better after antibiotics. ER called him back the next day as blood culture came back positive for gram-negative bacilli. -Clinically a lot better and denies any acute symptoms -No fever and no chills the white count is normalized -On IV Cefepime - Day 3 -Urine cx- 02/10 - Three different types of organisms growing, repeat collection recommended (repeated but already received 2 days of antibx). -Blood culture 1/2- GNB-pansensitive. -Repeat blood cultures is pending -Appreciate ID input and recommendation -Likely to have oral antibiotic and discharge home today (2) Hyperglycemia: -A1c - 6.9 -Blood sugar remains stable (3) HTN (hypertension): Stable -Continue metoprolol (4) HLD (hyperlipidemia): Statin currently on hold by PCP as pt was having myalgias (5) GERD (gastroesophageal reflux disease): -Continue PPI OBESITY DVT Prophylaxis -Lovenox SQ DISPOSITION Medical management in progress. Awaiting blood culture results Likely discharge this afternoon Total Time Total Time Spent Total Time Spent (In Minutes): 35 minutes Total Time Includes: Examination of the Patient, Discharge Planning, Medication Reconciliation and Communication With Other Providers Discharge Plan Discharge Items Patient Disposition: Home - Self-Care Reason For Visit: BACTEREMIA Discharge Diagnosis: Gram-negative bacteremia secondary to UTI, hypertension Condition: Good Discharge Goals: Decrease discomfort, Improve function and Increase independence Activity: Resume your previous activity Non-emergency contact: Primary Care Provider Call non-emergency contact if: you have any medication questions Follow-up/Referrals: Herbert Herndon PA-C [Primary Care Provider] - 02/18/19 9:20 am (He will need to have a follow-up appointment with urologist.) Diet: Heart Healthy Addtl Provider Instructions: Please drink plenty of fluids Prescriptions: New sulfamethoxazole-trimethoprim 800-160 mg Tablet 1 tab PO Q12 10 Days Qty: 20 RF: 0 Lactinex 1 million cell tablet,chewable 1 tab PO BID Qty: 30 RF: 0 Continued metoprolol tartrate 100 mg tablet 100 mg PO DAILY RF: 0 esomeprazole magnesium 40 mg capsule,delayed release(DR/EC) 40 mg PO DAILY RF: 0 loratadine 10 mg tablet 10 mg PO DAILY RF: 0 furosemide 20 mg Tablet 20 mg PO DAILY PRN (Reason: Edema) RF: 0 Discontinued sulfamethoxazole-trimethoprim [Bactrim DS] 800-160 mg tablet 1 tab PO Q12H 9 Days Qty: 18 RF: 0 Stand-Alone Forms: [facility] [employer] Messenger/Other Patient Handouts: Diabetes Type 2 Coping, Diabetes Meal Planning Discharge Orders: Discharge Order (Routine); Ordered 02/13/19 Ordered By: Galileo Lora Admission Data Admit Date/Time: 02/11/19 18:48 Attending Provider: Galileo Lora Admit Provider: Inocencio Tamayo Primary Care Provider: Herbert Herndon Other Providers: Larry Fried ; Inocencio Tamayo ; Heather Haines Service: Telemetry Medical Other Interventions: Discharge Summary Assessment (RN) Last Done: 02/13/19 15:12 DC Date/Time DO NOT enter until pt leaves facility: 02/13/19 15:35
== END 2019-02-13 15:35 | disposition home or self-care (01) | DRG 872 ==
LOC: ED 17:03 → SUATTDRO 18:48 → 2N 18:48

== ENCOUNTER 2020-01-30 02:54 | Inpatient (IN) ==
--- NOTE | 2020-01-30 03:07 | Emergency Department Note ---
Impression & Plan Sepsis, Acute UTI, Pneumonia ED Provider Note NAME: FRANCOISE BARRERA III AGE: 69 SEX: M ARRIVES VIA: Walk-In INFORMANT: [Patient ED PROVIDER(S): Stefany Jerome DO CHIEF COMPLAINT: Urinary frequency and SOB PLAN: Disposition: MEDICAL DECISION MAKING: This is a 69-year-old male patient who presents to the emergency department with urinary frequency. The patient states over the past couple of days he has noticed increase nausea which he felt was secondary to drainage of his sinuses and some diffuse myalgias. The patient has been unable to sleep tonight because of significant urinary frequency. He has a history of a UTI which led to gram- negative bacteremia. Upon presentation to the emergency department tonight, the patient felt short of breath after having to wear a mask. In retrospect, the patient admits that he has been feeling increasingly short of breath but thought it was secondary to having to wear a mask. The patient has a slightly elevated white blood cell count and developed a fever while here in the emergency department. CT scan of the chest shows no evidence of PE, however there was a small left lower lobe opacity concerning for pneumonia. The patient's urine was significantly infected and the patient presented complaining of urinary frequency. He was treated with IV daptomycin and IV Primaxin. The patient did have a COVID test performed and that is pending. The patient has no significant risk factors noted. I discussed the case with the [facility] hospitalist and he will evaluate for further management. Triage Nursing notes reviewed and agree them. Prior medical records reviewed Vital Signs: reviewed and remarkable for hypertension, tachycardia and tachypnea Differential diagnosis: PE, pneumonia, UTI, sepsis, COVID ER treatment provided: IV Zofran IV daptomycin IV Primaxin Oral Tylenol Diagnostics interpreted by me: ECG: Normal sinus rhythm at 89. There is no obvious ischemia or ectopy. There is no ST segment elevation. Cardiac Monitoring: Sinus tachycardia at 109 Laboratory studies: See below Imaging studies: Chest x-ray-as interpreted by me-no obvious fluid overload. Possible early left lower lobe infiltrate or opacity. CT scan of the chest: Interpreted by stat rad- No pulmonary embolism or acute aortic syndrome. Ground glass opacity in the left lower lobe likely a small focus of pneumonia. Otherwise the lungs are clear. No acute osseous abnormality. Chronic fracture deformities in the ribs on the left. HPI: 69/M arrives for evaluation of urinary frequency. The patient was unable to sleep tonight because he has had significant urinary frequency and diffuse myalgias. The patient has noted some increased nausea which he thought was secondary to sinus drainage. The patient also describes some increasing shortness of breath when she thought was secondary to wearing a mask. The patient has been quarantining at home because of the pandemic. He states that he has not been out of his house in the past 4 weeks and only went to [facility] 4 weeks ago to get groceries. He has not been exposed to anybody with COVID-19. The patient believes he may be suffering from a urinary tract infection and has had these before but did suffer an episode of septicemia last year as a result of a UTI. Patient also gives a history of tearing some ligaments or tendons in his ankle and purchasing a boot from [employer] to help in the healing process. He has been wearing that. ROS: See above HPI for pertinent positives & negatives. A total of 10 systems reviewed and were otherwise negative. PAST MEDICAL HISTORY:See Below PAST SURGICAL HISTORY:See Below FAMILY HISTORY:See Below SOCIAL HISTORY:See Below HOME MEDICATIONS:See Below ALLERGIES:See Below VITALS:See Below PHYSICAL EXAMINATION: HEENT: Head - normocephalic and atraumatic Pupils are equal, round, and reactive to light. Extraocular eye muscles are intact, and sclera are anict perico. Nose - moist nasal mucosa without discharge. Mouth - moist buccal mucosa. Oropharynx is nonerythematous and there is no tonsillar exudate or edema noted. Neck: Supple; no JVD, nuchal rigidity, cervical lymphadenopathy, or auscultated bruits. Heart: Regular rate and rhythm. There is a normal S1 and S2 with no murmurs, clicks, or gallops appreciated. Lungs: Clear to auscultation bilaterally with no wheezes, rales, or rhonchi. Abdomen: Soft, completely nontender, nondistended, with good bowel sounds. There are no palpable pulsatile masses or hepatosplenomegaly. There is no guarding, rigidity, or rebound noted. Extremities: No evidence of cyanosis, clubbing, or edema. There are easily palpable peripheral pulses. Skin: warm and dry with good turgor and no rashes. ED COURSE: Times/Reassessments: 0310: The patient was evaluated in room C8. A complete history and physical was performed. A septic protocol was performed. An order was placed for continuous cardiac monitoring. The patient was in a sinus tachycardia at a rate of 104. A portable chest x-ray was performed. This was described above. 0335: Nursing staff felt that the patient had some increased respiratory distress and had concerns for COVID and placed the patient in isolation. 0430: I reevaluated the patient to review some of the laboratory results with him. He will go for CT scan of the chest to rule out PE. The patient was feeling somewhat nauseated and was given IV Zofran. 0455: The patient is felt to be septic and will be started on IV antibiotics-IV Primaxin and IV daptomycin 0505: The patient was found to have an elevated temp and was given oral Tylenol 0600: I reevaluated the patient and reviewed the results of the CT scan with him. He is feeling much more comfortable. Vital signs are stable. I have personally spent greater than 100 minutes of critical care time in the direct management of this patient. This includes bedside care, interpretation of diagnostic studies, and testing, discussion with consultants, patient, and family members, and other required patient management activities. This 100 m inutes is in excess of all separately billable procedures. Stefany Jerome, Past Med/Surg History Social History Preferred Language: Wolof Communication Ability: Effective Beliefs That Will Affect Care: None marital status: Current Living Situation: Spouse Feels Safe at Home: Yes Smoking Status: Former smoker Hx Alcohol Use: Yes Alcohol type: hard liquor Alcohol Intake Frequency Comment: 3 drinks daily Hx Substance Use: No Allergies Allergies Allergy/AdvReac Type Severity Reaction Status Date / Time No Known Allergies Allergy Unverified 01/30/20 03:47 Home Meds Home Medications Medication Instructions Recorded Confirmed esomeprazole magnesium 40 mg PO DAILY 02/10/19 01/30/20 loratadine 10 mg PO DAILY 02/10/19 01/30/20 metoprolol tartrate 100 mg PO DAILY 02/10/19 01/30/20 metformin 500 mg PO BID 01/30/20 01/30/20 naproxen 500 mg PO DIRECTED PRN 01/30/20 01/30/20 Results & Data (ED) Vital Signs Vital Signs - 24 hr 01/30/20 03:00 01/30/20 03:39 01/30/20 03:42 Temperature 37.1 C Temperature Source Oral Pulse Rate 89 Pulse Rate [Apical] 101 H Pulse Rhythm [Apical] Respiratory Rate 24 40 H Respiratory Effort / Characteristics Respiratory Depth Shallow Shallow Blood Pressure 201/115 H Blood Pressure [Left Arm] Blood Pressure Mean 143 Blood Pressure Mean [Left Arm] Pulse Oximetry 98 98 Oxygen Delivery Method Room Air Room Air Sepsis Recent Fever Within 48 Hours No Sepsis New/Unexplained Change in Mental Status No Sepsis Action Taken by Nursing No Action Required 01/30/20 03:53 01/30/20 04:15 01/30/20 05:03 Temperature 38.9 C H Temperature Source Oral Pulse Rate Pulse Rate [Apical] 105 H 109 H Pulse Rhythm [Apical] Regular Respiratory Rate 32 H 32 H 36 H Respiratory Effort / Characteristics Non-Labored Spontaneous Respiratory Depth Normal Shallow Blood Pressure Blood Pressure [Left Arm] 163/89 H Blood Pressure Mean Blood Pressure Mean [Left Arm] 113 Pulse Oximetry 97 97 95 Oxygen Delivery Method Room Air Room Air Room Air Sepsis Recent Fever Within 48 Hours Sepsis New/Unexplained Change in Mental Status Sepsis Action Taken by Nursing 01/30/20 05:31 01/30/20 06:09 Temperature Temperature Source Pulse Rate Pulse Rate [Apical] 105 H 107 H Pulse Rhythm [Apical] Regular Regular Respiratory Rate 16 30 H Respiratory Effort / Characteristics Non-Labored Spontaneous Respiratory Depth Normal Shallow Blood Pressure Blood Pressure [Left Arm] 184/83 H 164/68 H Blood Pressure Mean Blood Pressure Mean [Left Arm] 116 100 Pulse Oximetry 95 Oxygen Delivery Method Room Air Sepsis Recent Fever Within 48 Hours Sepsis New/Unexplained Change in Mental Status Sepsis Action Taken by Nursing Laboratory Data Result diagrams: 01/30/20 03:56 01/30/20 03:56 Lab Results 01/30/20 01/30/20 01/30/20 Range/Units 03:00 03:56 03:56 WBC 12.81 H (4.8-10.8) K/uL RBC 5.60 (4.7-6.1) M/uL Hgb 15.8 (14.0-18.0) g/dL Hct 49.4 (42-52) % MCV 88.2 (80-100) fL MCH 28.2 (25-34) pg MCHC 32.0 (32-36) g/dL RDW Std Deviation 46.3 (36.4-46.3) fL RDW Coeff of Shady 14.4 (11.5-14.5) % Plt Count 297 (130-400) K/uL MPV 10.3 (7.4-10.4) fL Immature Gran % (Auto) 0.3 % Neut % (Auto) 87.2 % Lymph % (Auto) 8.0 % Crawford % (Auto) 3.4 % Eos % (Auto) 0.9 % Baso % (Auto) 0.2 % Immature Gran # (Auto) 0.04 H (0.00-0.02) K/uL Neut # (Auto) 11.18 H (1.4-6.5) K/uL Lymph # (Auto) 1.02 L (1.2-3.4) K/uL Crawford # (Auto) 0.43 (0.11-0.59) K/uL Eos # (Auto) 0.12 (0-0.5) K/uL Baso # (Auto) 0.02 (0-0.2) K/uL PT 11.3 (9.0-12.0) Seconds INR 1.1 (0.9-1.1) APTT 22.2 (21.0-31.0) Seconds PTT Ratio 0.8 D-Dimer 880 H* (0-500) ug/L FEU Sodium (136-145) mmol/L Potassium (3.5-5.1) mmol/L Chloride (98-107) mmol/L Carbon Dioxide (21-32) mmol/L Anion Gap (3-11) BUN (7-18) mg/dl Creatinine (0.6-1.4) mg/dl Est Cr Clr Drug Dosing ml/min Est GFR ( Amer) Est GFR (Non-Af Amer) BUN/Creatinine Ratio (10-20) Glucose (70-99) mg/dl Lactate (0.4-2.0) mmol/L Calcium (8.5-10.1) mg/dl Magnesium (1.8-2.4) mg/dl Total Bilirubin (0.2-1) mg/dl AST (15-37) U/L ALT (12-78) U/L Alkaline Phosphatase (45-117) U/L Troponin I (0-0.045) ng/ml Total Protein (6.4-8.2) gm/dl Albumin (3.4-5.0) gm/dl Globulin (2.5-4.0) gm/dl Albumin/Globulin Ratio (0.9-2) Urine Color Yellow Urine Appearance Cloudy A (Clear) Urine pH 5.5 (4.5-7.5) Ur Specific [place] 1.020 (1.000-1.030) Urine Protein Trace H (Negative) Urine Glucose (UA) Negative (Negative) Urine Ketones Negative (Negative) Urine Blood 3+ H (Negative) Urine Nitrite Positive A (Negative) Urine Bilirubin Negative (Negative) Urine Urobilinogen Negative (Negative) Ur Leukocyte Esterase 1+ H (Negative) Urine RBC 10-30 H (0-4) /hpf Urine WBC >30 H (0-5) /hpf Ur Epithelial Cells 0-5 (0-5) /lpf Urine Bacteria 2+ H (Negative) 01/30/20 01/30/20 Range/Units 03:56 03:56 WBC (4.8-10.8) K/uL RBC (4.7-6.1) M/uL Hgb (14.0-18.0) g/dL Hct (42-52) % MCV (80-100) fL MCH (25-34) pg MCHC (32-36) g/dL RDW Std Deviation (36.4-46.3) fL RDW Coeff of Shady (11.5-14.5) % Plt Count (130-400) K/uL MPV (7.4-10.4) fL Immature Gran % (Auto) % Neut % (Auto) % Lymph % (Auto) % Crawford % (Auto) % Eos % (Auto) % Baso % (Auto) % Immature Gran # (Auto) (0.00-0.02) K/uL Neut # (Auto) (1.4-6.5) K/uL Lymph # (Auto) (1.2-3.4) K/uL Crawford # (Auto) (0.11-0.59) K/uL Eos # (Auto) (0-0.5) K/uL Baso # (Auto) (0-0.2) K/uL PT (9.0-12.0) Seconds INR (0.9-1.1) APTT (21.0-31.0) Seconds PTT Ratio D-Dimer (0-500) ug/L FEU Sodium 137 (136-145) mmol/L Potassium 4.9 (3.5-5.1) mmol/L Chloride 104 (98-107) mmol/L Carbon Dioxide 27 (21-32) mmol/L Anion Gap 6.0 (3-11) BUN 15 (7-18) mg/dl Creatinine 1.23 (0.6-1.4) mg/dl Est Cr Clr Drug Dosing 84.8 ml/min Est GFR ( Amer) 69.5 Est GFR (Non-Af Amer) 59.9 BUN/Creatinine Ratio 12.1 (10-20) Glucose 136 H (70-99) mg/dl Lactate 2.2 H* (0.4-2.0) mmol/L Calcium 8.8 (8.5-10.1) mg/dl Magnesium 1.5 L (1.8-2.4) mg/dl Total Bilirubin 0.5 (0.2-1) mg/dl AST 22 (15-37) U/L ALT 45 (12-78) U/L Alkaline Phosphatase 73 (45-117) U/L Troponin I < 0.015 (0-0.045) ng/ml Total Protein 8.1 (6.4-8.2) gm/dl Albumin 3.4 (3.4-5.0) gm/dl Globulin 4.7 H (2.5-4.0) gm/dl Albumin/Globulin Ratio 0.7 L (0.9-2) Urine Color Urine Appearance (Clear) Urine pH (4.5-7.5) Ur Specific [place] (1.000-1.030) Urine Protein (Negative) Urine Glucose (UA) (Negative) Urine Ketones (Negative) Urine Blood (Negative) Urine Nitrite (Negative) Urine Bilirubin (Negative) Urine Urobilinogen (Negative) Ur Leukocyte Esterase (Negative) Urine RBC (0-4) /hpf Urine WBC (0-5) /hpf Ur Epithelial Cells (0-5) /lpf Urine Bacteria (Negative) Administered Medications Ioversol (Optiray 320 125ml) 125 ml IV ONCE PRN PRN Reason: Interaction Checking Stop: 02/03/20 05:02 Last Admin: 01/30/20 05:03 Dose: 118 ml Documented by: [id number] Discontinued Medications Acetaminophen (Tylenol) 1,000 mg PO NOW STA Stop: 01/30/20 05:07 Last Admin: 01/30/20 05:27 Dose: 1,000 mg Documented by: [id number] Imipenem/Cilastatin Sodium 500 (mg/ Dextrose) 110 mls @ 100 mls/hr IV NOW STA Stop: 01/30/20 06:05 Last Admin: 01/30/20 05:27 Dose: 100 mls/hr Documented by: [id number] Daptomycin 625 mg/ Syringe 12.5 mls @ 6.25 mls/min IV NOW ONE; Protocol Stop: 01/30/20 05:01 Last Admin: 01/30/20 05:26 Dose: 6.25 mls/min Documented by: [id number] Ondansetron HCl (Zofran) Confirm Administered Dose 4 mg .ROUTE .STK-MED ONE Stop: 01/30/20 04:39 Last Admin: 01/30/20 05:06 Dose: 4 mg Documented by: [id number] Discharge Plan Visit Data Chief Complaint: Urinary Symptoms Stated Complaint: UTI ED Provider: Stefany Jerome Discharge Problem: Sepsis, Acute UTI, Pneumonia Forms Stand Alone Forms: [facility] Prescriptions Prescriptions: No Action metoprolol tartrate 100 mg tablet 100 mg PO DAILY RF: 0 esomeprazole magnesium 40 mg capsule,delayed release(DR/EC) 40 mg PO DAILY RF: 0 loratadine 10 mg tablet 10 mg PO DAILY RF: 0 metformin 500 mg Tablet 500 mg PO BID RF: 0 naproxen 500 mg Tablet 500 mg PO DIRECTED PRN (Reason: Pain) RF: 0 Discharge Problem: Sepsis Qualifiers: Sepsis type: sepsis due to unspecified organism Sepsis acute organ dysfunction status: without acute organ dysfunction Qualified Code(s): A41.9 - Sepsis, unspecified organism Pneumonia Qualifiers: Pneumonia type: due to unspecified organism Laterality: left Lung location: lower lobe of lung Qualified Code(s): J18.9 - Pneumonia, unspecified organism
[2020-01-30 03:49] LABS: Appearance Urine Cloudy (Clear); Bilirubin Urine Negative (Negative); Blood Urine 3+ (Negative); Color Urine Yellow; Glucose Urine UA Negative (Negative); Ketones Urine Negative (Negative); Leukocyte Esterase Urine 1+ (Negative); Nitrite Urine Positive (Negative); Protein Urine Trace (Negative); Urobilinogen Urine Negative (Negative); pH Urine 5.5 (4.5-7.5)
[2020-01-30 03:54] LABS: Epithelial Cell Urine 0-5 /lpf (0-5)
[2020-01-30 03:55] LABS: Bacteria Urine 2+ (Negative); WBC Urine >30 /hpf (0-5)
[2020-01-30 04:11] LABS: Basophils # (auto) 0.02 K/uL (0-0.2); Basophils % (auto) 0.2 %; Eosinophils # (auto) 0.12 K/uL (0-0.5); Eosinophils % (auto) 0.9 %; Hematocrit (blood only) 49.4 % (42-52); Hemoglobin 15.8 g/dL (14.0-18.0); Immature Granulocytes # (auto) 0.04 K/uL (0.00-0.02); Immature Granulocytes % (auto) 0.3 %; Lymphocytes # (auto) 1.02 K/uL (1.2-3.4); Mean Corpuscular Hemoglobin 28.2 pg (25-34); Mean Corpuscular Volume 88.2 fL (80-100); Mean Platelet Volume 10.3 fL (7.4-10.4); Monocytes # (auto) 0.43 K/uL (0.11-0.59); Monocytes % (auto) 3.4 %; Neutrophils # (auto) 11.18 K/uL (1.4-6.5); Neutrophils % (auto) 87.2 %; Platelet Count 297 K/uL (130-400); RDW Coefficient of Variation 14.4 % (11.5-14.5); RDW Standard Deviation 46.3 fL (36.4-46.3); White Blood Count 12.81 K/uL (4.8-10.8)
[2020-01-30 04:22] LABS: INR 1.1 (0.9-1.1); Partial Thromboplastin Ratio 0.8; Partial Thromboplastin Time 22.2 Seconds (21.0-31.0); Prothrombin Time 11.3 Seconds (9.0-12.0)
[2020-01-30 04:27] LABS: D Dimer 880 ug/L FEU (0-500)
[2020-01-30 04:28] LABS: Alanine Aminotransferase 45 U/L (12-78); Albumin Level 3.4 gm/dl (3.4-5.0); Aspartate Aminotransferase 22 U/L (15-37); BUN Creatinine Ratio 12.1 (10-20); Blood Urea Nitrogen 15 mg/dl (7-18); Calcium 8.8 mg/dl (8.5-10.1); Carbon Dioxide 27 mmol/L (21-32); Chloride 104 mmol/L (98-107); Creatinine Clr Calc Pharmacy 84.8 ml/min; Est GFR (African American) 69.5; Est GFR (Non-African American) 59.9; Glucose 136 mg/dl (70-99); Magnesium 1.5 mg/dl (1.8-2.4); Potassium 4.9 mmol/L (3.5-5.1); Sodium 137 mmol/L (136-145)
[2020-01-30 04:32] LABS: Albumin Globulin Ratio 0.7 (0.9-2); Alkaline Phosphatase 73 U/L (45-117); Bilirubin,Total 0.5 mg/dl (0.2-1); Globulin 4.7 gm/dl (2.5-4.0); Total Protein 8.1 gm/dl (6.4-8.2); Troponin I < 0.015 ng/ml (0-0.045)
[2020-01-30] MEDS ORDERED: ONDANSETRON INJ 2 MG/ML 2 ML VIAL ONE (04:38)
[2020-01-30] MEDS ORDERED: DAPTOMYCIN CONSULT ACTIVE PRN (05:00)
[2020-01-30] MEDS ORDERED: IMIPENEM/CILASTATIN SODIUM 500 MG in DEXTROSE 5% 100 ML IV STA (05:00)
[2020-01-30] MEDS ORDERED: DAPTOmycin 625 MG in SYRINGE 0 ML IV ONE (05:00)
[2020-01-30] MEDS ORDERED: IMIPENEM/CILASTATIN CONSULT ACTIVE PRN (05:00)
[2020-01-30] MEDS ORDERED: OPTIRAY 320 125ml IV PRN (05:03)
[2020-01-30] MEDS ORDERED: ACETAMINOPHEN 500 MG TAB PO STA (05:06)
--- NOTE | 2020-01-30 06:47 | CT Scan Report ---
CT angio chest PE protocol CT DOSE: 1142.69 mGy.cm HISTORY: Chest pain PE TECHNIQUE: Multiaxial CT images of the chest were performed following the intravenous administration of contrast to evaluate the pulmonary arteries. Maximal intensity projection images were also obtaine d. A dose lowering technique was utilized adhering to the principles of ALARA. COMPARISON STUDY: None. FINDINGS: There is a normal caliber thoracic aorta with no evidence for dissection. There is no evide nce for pulmonary embolus. No pleural effusions. No pneumothorax. The liver and spleen are unremarkab le. No mediastinal or hilar lymphadenopathy. The central airways are patent. The lungs demonstrate a small left infrahilar parenchymal infiltrate IMPRESSION: No evidence for pulmonary embolus. Small left infrahilar parenchymal infiltrate. ACT 112: Negative or not required by law. The above report was generated using voice recognition software. It may contain grammatical, syntax or spelling errors. Electronically signed by: Shay Guillaume M.D. 01/30/2020 6:46 AM
[2020-01-30] MEDS ORDERED: SODIUM CHLORIDE 0.9% 1000ML 1,000 ML IV SCH (07:00)
--- NOTE | 2020-01-30 07:06 | XRay Report ---
XR chest 1V portable CLINICAL HISTORY: SEPSIS dyspnea COMPARISON STUDY: No previous studies for comparison. FINDINGS: The bones soft tissues and hemidiaphragms are normal. The cardiomediastinal silhouette is n ormal. The lungs are clear. The pulmonary vasculature is normal. IMPRESSION: Negative chest. ACT 112: Negative or not required by law. The above report was generated using voice recognition software. It may contain grammatical, syntax or spelling errors. Electronically signed by: Shay Guillaume M.D. 01/30/2020 7:05 AM
--- NOTE | 2020-01-30 07:49 | History and Physical Report ---
DATE OF ADMISSION: 01/30/2020 CHIEF COMPLAINT: Sepsis, urinary tract infection. HISTORY OF PRESENT ILLNESS: This is a 69-year-old male with past medical history significant for diabetes, hypertension, hyperlipidemia, GERD, obesity, history of sepsis from urinary tract infection in the past with gram-negative bacteremia, who presents with urinary frequency. The patient states that since yesterday at 5:00 p.m., he is having increased frequency of urination, every 10 minutes he has to go to bathroom. Denies any burning micturition or blood in the urine, but was having some fever at home, some nausea, mild abdominal discomfort. He has also felt short of breath at the same time. He has cough from his sinuses on and off, does not bring any phlegm, and some runny nose. No loss of smell or taste. No recent travel. No exposure to COVID. Lives with his . Ambulates okay. In September, he tore a ligament in his left ankle and it is not getting better, but he is ambulating okay. He is supposed to get MRI scan soon. Currently in the ER, when he came in, he was tachypneic and tachycardia and had temperature spike. Received daptomycin and imipenem. UA was positive. Lactic acid was 2.2, repeat was 3.1. His D-dimer is elevated at 880. CTA of the chest was done, it was negative for PE, but there is small left infrahilar parenchymal infiltrate. Because of the pneumonia and shortness of breath, COVID was ordered, results are pending. Denies any chest pain. Has some mild headache, has some blurred vision and supposed to get cataract surgery coming Monday. Has some runny nose from his allergies. No sore throat, no earache, no dysphagia. Appetite is okay. Sleeps okay. Normal bowel movements. Has mild edema in his left lower extremity. No rash. Ambulates okay. ALLERGIES: No known drug allergies. PAST MEDICAL HISTORY: As mentioned above. PAST SURGICAL HISTORY: Fractured hand, colonoscopy, EGDs. MEDICATIONS: The patient is on metformin 500 mg p.o. b.i.d., Lipitor 20 mg p.o. daily, naproxen p.r.n., esomeprazole 40 mg p.o. daily, loratadine 10 mg p.o. daily, metoprolol 100 mg p.o. daily, Lasix 20 mg daily. FAMILY HISTORY: Significant for mother has asthma and breast cancer. SOCIAL HISTORY: . Former smoker for 16 years. Alcohol occasional. No drug use. REVIEW OF SYSTEMS: As per HPI. Rest of the review of systems negative. PHYSICAL EXAMINATION: GENERAL: The patient is morbidly obese, currently not in acute distress. VITAL SIGNS: Temperature T-max 38.9, pulse 102, respiratory rate in 20s, blood pressure 176/76, oxygen 93% on room air. HEENT: Pupils equal, round, and reactive to light. Extraocular muscles intact. NECK: No JVD, supple. CARDIOVASCULAR: S1, S2 heard. Tachycardia. No murmurs. RESPIRATORY SYSTEM: Normal AP diameter. No accessory muscle use. No wheezing, no crackles. ABDOMEN: Soft, bowel sounds present. Mild abdominal discomfort. No guarding, no rigidity, no distention. No CVA tenderness. CENTRAL NERVOUS SYSTEM: Cranial nerves II-XII grossly intact, nonfocal. EXTREMITIES: Mild pedal edema in the left lower extremity. No erythema seen. LABORATORY DATA: WBC 12.8, hemoglobin 15.8, hematocrit 49.4, platelets 297. PT 11.3, INR 1.1, APTT 22.8. D-dimer 880. Sodium 137, potassium 4.9, chloride 104, CO2 of 27, BUN 15, creatinine 1.2, serum glucose 136. Lactate 2.0, repeat 3.1, calcium 8.8, magnesium 1.5, total bilirubin 0.5, AST 22, ALT 45, alkaline phosphatase 73, troponin I less than 0.015. Urinalysis positive for urine nitrite, leukocyte esterase, and bacteria. COVID pending. IMAGING DATA: Chest x-ray, no acute findings. CT of the chest, no PE, small left infrahilar parenchymal infiltrate. EKG: Normal sinus rhythm at a rate of 89, no acute ST changes seen. ASSESSMENT AND PLAN: This is a 69-year-old male who presents with sepsis. 1. Sepsis, most likely from the urinary tract infection. History of urinary tract infection and sepsis in the past with gram-negative bacteremia with E. coli pansensitive. Meets criteria for sepsis with temperature spike, tachycardia, leukocytosis, and elevated lactic acid. Received daptomycin and imipenem in the ER. Will continue with IV Zosyn and IV doxycycline for now and follow the cultures. Follow the repeat lactic acids. We will give 1 liter fluid bolus and continue IV normal saline at 125 mL per hour and closely monitor in the tele floor. We will get MRSA screen. If positive, we will add vancomycin. The patient also received daptomycin. 2. Pneumonia on the CAT scan. Antibiotics as above. We will follow the cultures. COVID test pending. 3. Hypomagnesemia, will replace. 4. Diabetes. Hold metformin. We will place on sliding scale. Follow the blood sugars, follow the HbA1c level. 5. History of hypertension. Metoprolol withholding parameters. 6. Gastroesophageal reflux disease. PPI. 7. Hyperlipidemia. Hold statin for now. 8. Obesity, needs counseling. 9. Deep venous thrombosis prophylaxis, heparin subQ. 10. Disposition: Closely monitor in the tele floor. Level 1 full code. PT and OT prior to discharge. Expect to discharge home and follow with family doctor. Social service to help with discharge planning. Will continue isolation and contact precautions until COVID test is back. MARYANA
--- NOTE | 2020-01-30 08:26 | CT Scan Report ---
CT abd pelvis wo con CT DOSE: 1280.01 mGycm HISTORY: Sepsis urosepsis TECHNIQUE: Multiaxial CT images of the abdomen and pelvis were performed without contrast. A dose lo wering technique was utilized adhering to the principles of ALARA. COMPARISON STUDY: 02/10/2019 FINDINGS: The lung bases are clear. The unenhanced liver, spleen, gallbladder, pancreas, kidneys, and adrenal glands are within normal limits. No bowel wall thickening or obstruction. The pelvic organs are unremarkable. No suspicious lytic or blastic osseous lesions. IMPRESSION: No significant abnormality identified within the abdomen or pelvis. No change from the prior study. ACT 112: Negative or not required by law. The above report was generated using voice recognition software. It may contain grammatical, syntax or spelling errors. Electronically signed by: Shay Guillaume M.D. 01/30/2020 8:24 AM
[2020-01-30] MEDS ORDERED: PNEUMOCOCCAL POLYSACCHARIDES 25 MCG/0.5 ML VIAL/SYR IM ONE (09:05)
[2020-01-30] MEDS ORDERED: PNEUMOCOCCAL ADMINISTRATION CHARGE ONE (09:05)
[2020-01-30] MEDS ORDERED: ACETAMINOPHEN 325 MG TAB PO PRN (10:30)
[2020-01-30] MEDS ORDERED: ONDANSETRON INJ 2 MG/ML 2 ML VIAL IV PRN (10:30)
[2020-01-30] MEDS ORDERED: PIPERACILL/TAZOBAC CONSULT ACTIVE PRN (10:30)
[2020-01-30] MEDS ORDERED: NITROGLYCERIN SL 0.4 MG/TAB TAB SL PRN (10:30)
[2020-01-30] MEDS ORDERED: POLYETHYLENE (MIRALAX) 17 GM PACK PO PRN (10:30)
[2020-01-30] MEDS ORDERED: PIPERACILLIN/TAZOBACTAM 4.5 GM in DEXTROSE 5% 100 ML IV ONE (11:00)
[2020-01-30] MEDS: SODIUM CHLORIDE 0.9% 1000ML 1,000 ML IV SCH ×2 (11:06→20:04)
[2020-01-30] MEDS: DOXYCYCLINE HYCLATE 100 MG in DEXTROSE 5% 100 ML IV SCH ×2 (11:55→20:06)
[2020-01-30] MEDS: MAGNESIUM SULFATE / D5W 1 GM/100 ML BAG IV SCH ×2 (11:56→13:29)
[2020-01-30] MEDS: LORATADINE 10 MG TAB PO SCH (12:46)
[2020-01-30] MEDS: METOPROLOL TARTRATE 100 MG TAB PO SCH (12:47)
[2020-01-30] MEDS: INSULIN ASPART 100 UNITS/ML 3 ML PEN SC SCH ×3 (12:47→21:45)
[2020-01-30] MEDS: PANTOprazole 40 MG TAB PO SCH (12:47)
[2020-01-30] MEDS: HEPARIN SOD 5,000 UNIT/0.5 ML VIAL SQ SCH ×2 (13:29→20:05)
[2020-01-30] MEDS: PIPERACILLIN/TAZOBACTAM 4.5 GM in DEXTROSE 5% 100 ML IV SCH (15:49)
--- NOTE | 2020-01-30 21:02 | Communication Note ---
Date of Service: January 30, 2020 Admitted this morning with UTI / sepsis. Feels better. Temp down. VSS. Blood culture growing gram neg bacilli. Continue piperacillin / tazobactam. Lactate trending downward.
[2020-01-31] MEDS: PIPERACILLIN/TAZOBACTAM 4.5 GM in DEXTROSE 5% 100 ML IV SCH ×3 (02:02→17:47)
[2020-01-31] MEDS: SODIUM CHLORIDE 0.9% 1000ML 1,000 ML IV SCH ×2 (02:02→12:06)
[2020-01-31] MEDS: HEPARIN SOD 5,000 UNIT/0.5 ML VIAL SQ SCH ×3 (05:03→20:31)
[2020-01-31 05:08] LABS: Basophils # (auto) 0.02 K/uL (0-0.2); Basophils % (auto) 0.1 %; Eosinophils # (auto) 0.07 K/uL (0-0.5); Eosinophils % (auto) 0.4 %; Hematocrit (blood only) 41.7 % (42-52); Hemoglobin 13.6 g/dL (14.0-18.0); Immature Granulocytes # (auto) 0.05 K/uL (0.00-0.02); Immature Granulocytes % (auto) 0.3 %; Lymphocytes # (auto) 1.39 K/uL (1.2-3.4); Lymphocytes % (auto) 8.8 %; Mean Corpuscular Hemoglobin 29.1 pg (25-34); Mean Corpuscular Hgb Conc 32.6 g/dL (32-36); Mean Corpuscular Volume 89.3 fL (80-100); Mean Platelet Volume 10.6 fL (7.4-10.4); Monocytes # (auto) 1.73 K/uL (0.11-0.59); Neutrophils % (auto) 79.4 %; Platelet Count 242 K/uL (130-400); RDW Coefficient of Variation 14.8 % (11.5-14.5); RDW Standard Deviation 47.8 fL (36.4-46.3); Red Blood Count 4.67 M/uL (4.7-6.1); White Blood Count 15.76 K/uL (4.8-10.8)
[2020-01-31 05:38] LABS: BUN Creatinine Ratio 13.1 (10-20); Calcium 8.1 mg/dl (8.5-10.1); Creatinine Clr Calc Pharmacy 92.3 ml/min; Est GFR (African American) 74.6; Est GFR (Non-African American) 64.3; Magnesium 2.1 mg/dl (1.8-2.4); Potassium 4.1 mmol/L (3.5-5.1)
--- NOTE | 2020-01-31 06:16 | Electrocardiogram Report ---
Test Reason : Blood Pressure : / mmHG Vent. Rate : 089 BPM Atrial Rate : 089 BPM P-R Int : 166 ms QRS Dur : 072 ms QT Int : 330 ms P-R-T Axes : -02 -46 069 degrees QTc Int : 401 ms Poor data quality, interpretation may be adversely affected Normal sinus rhythm Left axis deviation Possible Anterior infarct , age undetermined Abnormal ECG No previous ECGs available Confirmed by Cuate Bee ([id number]) on 01/31/2020 6:16:17 AM Referred By: REFERRED SELF Confirmed By:Cuate Bee
[2020-01-31 06:50] LABS: Estimated Average Glucose 157 mg/dl; Hemoglobin A1C 7.1 % (4.5-5.6)
[2020-01-31] MEDS: METOPROLOL TARTRATE 100 MG TAB PO SCH (08:27)
[2020-01-31] MEDS: PANTOprazole 40 MG TAB PO SCH (08:27)
[2020-01-31] MEDS: LORATADINE 10 MG TAB PO SCH (08:28)
[2020-01-31] MEDS: DOXYCYCLINE HYCLATE 100 MG in DEXTROSE 5% 100 ML IV SCH ×2 (08:30→20:30)
[2020-01-31] MEDS: INSULIN ASPART 100 UNITS/ML 3 ML PEN SC SCH ×4 (08:37→20:32)
--- NOTE | 2020-01-31 16:21 | Ultrasound Report ---
US venous doppler LE bilateral CLINICAL HISTORY: elevated D-dimer, leg swelling. COMPARISON STUDY: September 29, 2016 FINDINGS: Real-time and color flow Doppler imaging were performed. Flow was seen within the femoral, popliteal and calf veins with no intraluminal thrombus demonstrated. The saphenous vein is patent. Th ere is a small right popliteal cyst measuring 2.8 x 1.0 x 1.4 cm. IMPRESSION: No evidence of lower extremity DVT. ACT 112: Negative or not required by law. Electronically signed by: Anand Spencer M.D. 01/31/2020 4:20 PM
--- NOTE | 2020-01-31 16:35 | XRay Report ---
XR chest 1V portable CLINICAL HISTORY: fever, cough COMPARISON STUDY: No previous studies for comparison. FINDINGS: Moderate cardiomegaly. Minimal platelike atelectasis left base. Lungs otherwise appear radha r. IMPRESSION: Moderate cardiomegaly. Minimal basilar platelike atelectasis. ACT 112: Negative or not required by law. The above report was generated using voice recognition software. It may contain grammatical, syntax or spelling errors. Electronically signed by: Shay Guillaume M.D. 01/31/2020 4:33 PM
--- NOTE | 2020-01-31 21:14 | Hospitalist Progress Note ---
Date of Service January 31, 2020 Assessment & Plan (1) Severe sepsis: Met criteria for severe sepsis per current [facility] definition (fever, tachycardia, tachypnea, leukocytosis, lactate > 2). Hemodynamically stable. Lactate trended. Received fluid resuscitation. Blood cultures obtained. Received broad spectrum antibiotics. Source = urinary tract as discussed below. (2) UTI (urinary tract infection): Presented with fever, urinary frequency, urinary hesitancy. No dysuria or gross hematuria. UA showed nitrites, leukocyte esterase, RBC's, WBC's, bacteria. No renal calculi or other urinary tract abnormalities on CT. Consider prostatitis. Urine culture growing E coli. Blood cultures growing gram negative bacilli. Continue piperacillin / tazobactam until final culture reports are available. (3) Abnormal CT scan, chest: CTA chest negative for PE. Small left infrahilar infiltrate noted. ? pneumonia. Patient has an occasional cough that he attributes to seasonal allergies. Continue doxycycline + piperacillin / tazobactam. (4) Hypertension: Hemodynamically stable. Continue metoprolol. (5) GERD (gastroesophageal reflux disease): Continue PPI. (6) Diabetes mellitus type 2, controlled: Usually managed with metformin. Hgb A1c = 7.1. Hold metformin during hospital stay. Insulin coverage as needed. FBS today = 157. (7) Dyslipidemia: Continue atorvastatin. (8) Lower extremity edema: Lower extremity edema, L > R. Check venous duplex to rule out DVT. (9) DVT prophylaxis: SQ heparin. Ambulate. (10) Discharge planning issues: Anticipated discharge to home. Medical follow-up with Herbert Herndon PA-C. Admission and Anticipated Discharge Date Admission Date: January 30, 2020 Subjective Recheck for sepsis and other problems. Patient seen in their room around 1530. Feels better. Temp down. No flank pain. No dysuria or hematuria. Urinary hesitancy and frequency improved. Review of Systems: Constitutional- no fever. Cardiac- no chest pain. Pulmonary- no cough or SOB. GI- no nausea, vomiting, diarrhea, melena, hematochezia. - as noted above. Otherwise, as noted above. Physical Exam Constitutional: no acute distress Respiratory: no respiratory distress Auscultation: lungs clear to ausculta tion bilaterally Cardiovascular: Rate/Rhythm: regular rate and regular rhythm Heart Sounds: no gallop and no murmur Vessels: no JVD Extremities: + edema (RLE trace, LLE 1+); no calf tenderness Gastrointestinal (Abdomen): normal bowel sounds, soft, nontender, no hepatosplenomegaly Musculoskeletal: Extremities: no cyanosis Skin: no rashes, warm and dry Psychiatric: Orientation: alert and oriented x 3 Results & Data Results & Data ([facility]) Vital Signs (Past 12 Hours) Vital Signs Temp Pulse Pulse Pulse Resp BP BP 01/31/20 20:00 36.9 C 71 71 16 166/75 H 01/31/20 17:57 36.6 C 84 19 133/67 01/31/20 14:00 70 24 01/31/20 11:27 37.2 C 01/31/20 11:08 63 15 133/71 Pulse Ox 01/31/20 20:00 97 01/31/20 17:57 98 01/31/20 14:00 01/31/20 11:27 01/31/20 11:08 Laboratory Results 01/31/20 04:35 01/31/20 04:35 Microbiology 01/30/20 03:00 Urine,Clean Catch Urine Culture - Preliminary Escherichia coli 01/30/20 03:56 Blood Aerobic Blood Culture - Preliminary Gram negative bacilli 01/30/20 03:56 Blood Anaerobic Blood Culture - Preliminary Gram negative bacilli 01/30/20 04:41 Blood Aerobic Blood Culture - Preliminary No growth in Aerobic bottle after 24 hours. 01/30/20 04:41 Blood Anaerobic Blood Culture - Preliminary No growth in Anaerobic bottle after 24 hours. (1) UTI (urinary tract infection) Hematuria presence: without hematuria Urinary tract infection type: site unspecified Qualified Code(s): N39.0 - Urinary tract infection, site not specified
[2020-02-01] MEDS: PIPERACILLIN/TAZOBACTAM 4.5 GM in DEXTROSE 5% 100 ML IV SCH ×3 (00:26→16:05)
[2020-02-01] MEDS ORDERED: CARBOHYDRATES FOR HYPOGLYCEMIA PO PRN (05:00)
[2020-02-01] MEDS ORDERED: GLUCOSE 40% GEL 15 GM TUBE PO PRN (05:00)
[2020-02-01] MEDS ORDERED: GLUCOSE 10 TABS/TUBE PO PRN (05:00)
[2020-02-01] MEDS ORDERED: DEXTROSE 50% 50 ML SYRINGE IV PRN (05:00)
[2020-02-01] MEDS ORDERED: GLUCAGON FOR INJ 1 MG VIAL SQ PRN (05:00)
[2020-02-01] MEDS: HEPARIN SOD 5,000 UNIT/0.5 ML VIAL SQ SCH ×3 (06:03→22:35)
[2020-02-01] MEDS: METOPROLOL TARTRATE 100 MG TAB PO SCH (08:12)
[2020-02-01] MEDS: INSULIN ASPART 100 UNITS/ML 3 ML PEN SC SCH ×4 (08:13→22:36)
[2020-02-01] MEDS: PANTOprazole 40 MG TAB PO SCH (08:13)
[2020-02-01] MEDS: LORATADINE 10 MG TAB PO SCH (08:13)
[2020-02-01 10:19] LABS: Basophils # (auto) 0.04 K/uL (0-0.2); Basophils % (auto) 0.5 %; Eosinophils # (auto) 0.19 K/uL (0-0.5); Eosinophils % (auto) 2.5 %; Hematocrit (blood only) 43.4 % (42-52); Immature Granulocytes # (auto) 0.02 K/uL (0.00-0.02); Immature Granulocytes % (auto) 0.3 %; Lymphocytes # (auto) 1.14 K/uL (1.2-3.4); Mean Corpuscular Hemoglobin 28.7 pg (25-34); Mean Corpuscular Hgb Conc 32.3 g/dL (32-36); Mean Corpuscular Volume 89.1 fL (80-100); Mean Platelet Volume 10.1 fL (7.4-10.4); Monocytes # (auto) 0.91 K/uL (0.11-0.59); Neutrophils # (auto) 5.29 K/uL (1.4-6.5); Neutrophils % (auto) 69.7 %; Platelet Count 257 K/uL (130-400); RDW Coefficient of Variation 14.6 % (11.5-14.5); RDW Standard Deviation 47.5 fL (36.4-46.3); Red Blood Count 4.87 M/uL (4.7-6.1); White Blood Count 7.59 K/uL (4.8-10.8)
[2020-02-01 10:57] LABS: BUN Creatinine Ratio 11.7 (10-20); Calcium 8.8 mg/dl (8.5-10.1); Est GFR (African American) 82.2; Potassium 3.9 mmol/L (3.5-5.1)
--- NOTE | 2020-02-01 11:02 | Hospitalist Progress Note ---
Date of Service February 01, 2020 Assessment & Plan (1) Severe sepsis: Met criteria for severe sepsis per current [facility] definition (fever, tachycardia, tachypnea, leukocytosis, lactate > 2). Hemodynamically stable. Lactate trended. Received fluid resuscitation. Blood cultures obtained. Received broad spectrum antibiotics. Source = urinary tract as discussed below. (2) UTI (urinary tract infection): Presented with fever, urinary frequency, urinary hesitancy. No dysuria or gross hematuria. UA showed nitrites, leukocyte esterase, RBC's, WBC's, bacteria. No renal calculi or other urinary tract abnormalities on CT. Consider prostatitis. Urine and blood cultures growing E coli, pansensitive. Procalcitonin today = 3.47. Check repeat blood cultures to ensure clearance of bacteremia. Continue piperacillin / tazobactam until procalcitonin comes down and repeat cultures negative. No contraindications for quinolones. Current guidelines recommend 4-6 weeks of therapy, depending on clinical response and inflammatory markers. Will need outpatient follow-up with Urology for recurrent UTI's (3) Abnormal CT scan, chest: CTA chest negative for PE. Small left infrahilar infiltrate noted. ? pneumonia. Patient has an occasional cough that he attributes to seasonal allergies. Initially received doxycycline and piperacillin / tazobactam. Transitioning to levofloxacin for pulmonary + urinary tract coverage. (4) Hypertension: Hemodynamically stable. Continue metoprolol. (5) GERD (gastroesophageal reflux disease): Continue PPI. (6) Diabetes mellitus type 2, controlled: Usually managed with metformin. Hgb A1c = 7.1. Hold metformin during hospital stay. Insulin coverage as needed. FBS today = 135. (7) Dyslipidemia: Continue atorvastatin. (8) Lower extremity edema: Lower extremity edema, L > R. Venous duplex lower extremities negative for DVT. (9) DVT prophylaxis: SQ heparin. Ambulate. (10) Discharge planning issues: Anticipated discharge to home. Medical follow-up with Herbert Herndon PA-C. Admission and Anticipated Discharge Date Admission Date: January 30, 2020 Subjective Recheck for sepsis and other problems. Patient seen in their room around 1010. Afebrile. No flank pain. No dysuria or hematuria. Urinary hesitancy and frequency improved. Review of Systems: Constitutional- no fever. Cardiac- no chest pain. Pulmonary- no cough or SOB. GI- mild nausea; no vomiting, diarrhea, melena, hematochezia. - as noted above. Otherwise, as noted above. Physical Exam Constitutional: no acute distress Respiratory: no respiratory distress Auscultation: lungs clear to auscultation bilaterally Cardiovascular: Rate/Rhythm: regular rate and regular rhythm Heart Sounds: no gallop and no murmur Vessels: no JVD Extremities: + edema (RLE trace, LLE 1+); no calf tenderness Gastrointestinal (Abdomen): normal bowel sounds, soft, nontender, no hepatosplenomegaly Musculoskeletal: Extremities: no cyanosis Skin: no rashes, warm and dry Psychiatric: Orientation: alert and oriented x 3 Results & Data Results & Data ([facility]) Vital Signs (Past 12 Hours) Vital Signs Temp Pulse Pulse Pulse Resp BP Pulse Ox 02/01/20 08:00 36.6 C 78 18 143/72 H 97 02/01/20 04:20 36.9 C 62 18 133/62 95 02/01/20 00:15 37 C 72 67 20 130/79 94 Laboratory Results 02/01/20 10:09 02/01/20 10:09 Microbiology 01/30/20 03:00 Urine,Clean Catch Urine Culture - Final Escherichia coli 01/30/20 03:56 Blood Aerobic Blood Culture - Final Escherichia coli 01/30/20 03:56 Blood Anaerobic Blood Culture - Final Escherichia coli 01/30/20 04:41 Blood Aerobic Blood Culture - Preliminary No growth in Aerobic bottle after 48 hours. 01/30/20 04:41 Blood Anaerobic Blood Culture - Preliminary No growth in Anaerobic bottle after 48 hours. (1) UTI (urinary tract infection) Hematuria presence: without hematuria Urinary tract infection type: site unspecified Qualified Code(s): N39.0 - Urinary tract infection, site not specified
[2020-02-01] MEDS: levoFLOXacin 750 MG TAB PO SCH (11:56)
[2020-02-02] MEDS: PIPERACILLIN/TAZOBACTAM 4.5 GM in DEXTROSE 5% 100 ML IV SCH ×3 (00:33→15:50)
[2020-02-02] MEDS: HEPARIN SOD 5,000 UNIT/0.5 ML VIAL SQ SCH ×3 (05:49→21:09)
[2020-02-02 07:51] LABS: Hematocrit (blood only) 43.3 % (42-52); Hemoglobin 14.1 g/dL (14.0-18.0); Mean Corpuscular Hgb Conc 32.6 g/dL (32-36); Mean Corpuscular Volume 88.9 fL (80-100); Mean Platelet Volume 10.2 fL (7.4-10.4); Platelet Count 286 K/uL (130-400); RDW Coefficient of Variation 14.4 % (11.5-14.5); RDW Standard Deviation 46.7 fL (36.4-46.3); Red Blood Count 4.87 M/uL (4.7-6.1); White Blood Count 6.12 K/uL (4.8-10.8)
[2020-02-02 08:12] LABS: BUN Creatinine Ratio 12.2 (10-20); C Reactive Protein 4.96 mg/dl (0-0.29); Calcium 8.8 mg/dl (8.5-10.1); Creatinine Clr Calc Pharmacy 92.3 ml/min; Est GFR (African American) 74.6; Est GFR (Non-African American) 64.3
[2020-02-02] MEDS: LORATADINE 10 MG TAB PO SCH (08:23)
[2020-02-02] MEDS: PANTOprazole 40 MG TAB PO SCH (08:23)
[2020-02-02] MEDS: METOPROLOL TARTRATE 100 MG TAB PO SCH (08:23)
[2020-02-02] MEDS: INSULIN ASPART 100 UNITS/ML 3 ML PEN SC SCH ×4 (08:24→22:03)
--- NOTE | 2020-02-02 10:43 | Hospitalist Progress Note ---
Date of Service February 02, 2020 Assessment & Plan (1) Severe sepsis: Met criteria for severe sepsis per current [facility] definition (fever, tachycardia, tachypnea, leukocytosis, lactate > 2). Hemodynamically stable. Lactate trended. Received fluid resuscitation. Blood cultures obtained. Received broad spectrum antibiotics. Source = urinary tract as discussed below. (2) UTI (urinary tract infection): Presented with fever, urinary frequency, urinary hesitancy. No dysuria or gross hematuria. UA showed nitrites, leukocyte esterase, RBC's, WBC's, bacteria. No renal calculi or other urinary tract abnormalities on CT. Suspected prostatitis. Rectal exam today- prostate boggy, nontender (exam limited, could not reach superior gland) Urine and blood cultures growing E coli, pansensitive. Procalcitonin yesterday = 3.47. CRP today = 4.96. Checking repeat blood cultures to ensure clearance of bacteremia- negative at 24 hrs. Continue piperacillin / tazobactam until procalcitonin comes down and repeat cultures negative. No contraindications for quinolones. Current guidelines recommend 4-6 weeks of therapy, depending on clinical response and inflammatory markers. Will need outpatient follow-up with Urology for recurrent UTI's (3) Abnormal CT scan, chest: CTA chest negative for PE. Small left infrahilar infiltrate noted. ? pneumonia. Patient has an occasional cough that he attributes to seasonal allergies. Initially received doxycycline and piperacillin / tazobactam. Transitioning to levofloxacin for pulmonary + urinary tract coverage. (4) Hypertension: Hemodynamically stable. Continue metoprolol. (5) GERD (gastroesophageal reflux disease): Continue PPI. (6) Diabetes mellitus type 2, controlled: Usually managed with metformin. Hgb A1c = 7.1. Hold metformin during hospital stay. Insulin coverage as needed. FBS today = 134. (7) Dyslipidemia: Continue atorvastatin. (8) Lower extremity edema: Lower extremity edema, L > R. Venous duplex lower extremities negative for DVT. (9) DVT prophylaxis: SQ heparin. Ambulate. (10) Discharge planning issues: Anticipated discharge to home. Medical follow-up with Herbert Herndon PA-C. Urology follow-up at [facility]. Admission and Anticipated Discharge Date Admission Date: January 30, 2020 Subjective Recheck for sepsis and other problems. Patient seen in their room around 0930. Feels better. No fever for last few days. No flank pain. No dysuria or hematuria. Urinary hesitancy and frequency improved. Review of Systems: Constitutional- no fever. Cardiac- no chest pain. Pulmonary- no cough or SOB. GI- mild nausea; 2 soft stools over past 24 hrs; no vomiting, melena, hematochezia. - as noted above. Otherwise, as noted above. Physical Exam Constitutional: no acute distress Respiratory: no respiratory distress Auscultation: lungs clear to auscultation bilaterally Cardiovascular: Rate/Rhythm: regular rate and regular rhythm Heart Sounds: no gallop and no murmur Vessels: no JVD Extremities: + edema (RLE trace, LLE 1+); no calf tenderness Gastrointestinal (Abdomen): normal bowel sounds, soft, nontender, no hepatosplenomegaly Musculoskeletal: Extremities: no cyanosis Skin: no rashes, warm and dry Psychiatric: Orientation: alert and oriented x 3 Genitourinary: + prostate abnormality (limited exam, boggy, nontender) Results & Data Results & Data ([facility]) Vital Signs (Past 12 Hours) Vital Signs Temp Pulse Resp BP Pulse Ox 02/02/20 08:02 36.9 C 73 17 153/78 H 94 02/02/20 04:09 36.7 C 62 15 145/81 H 95 Laboratory Results Laboratory Results - last 24 hr 02/01/20 02/01/20 02/01/20 10:09 10:09 11:30 WBC RBC Hgb Hct MCV MCH MCHC RDW Std Deviation RDW Coeff of [place]ady Plt Count MPV Sodium 136 Potassium 3.9 Chloride 107 Carbon Dioxide 24 Anion Gap 6.0 BUN 13 Creatinine 1.07 Est Cr Clr Drug Dosing 100.0 Est GFR ( Amer) 82.2 Est GFR (Non-Af Amer) 71.0 BUN/Creatinine Ratio 11.7 Glucose 184 H POC Glucose 127 H Calcium 8.8 C-Reactive Protein Procalcitonin 3.47 H Specimen Hemolysis 02/01/20 02/01/20 02/02/20 16:41 19:55 07:32 WBC 6.12 RBC 4.87 Hgb 14.1 Hct 43.3 MCV 88.9 MCH 29.0 MCHC 32.6 RDW Std Deviation 46.7 H RDW Coeff of [place]ady 14.4 Plt Count 286 MPV 10.2 Sodium Potassium Chloride Carbon Dioxide Anion Gap BUN Creatinine Est Cr Clr Drug Dosing Est GFR ( Amer) Est GFR (Non-Af Amer) BUN/Creatinine Ratio Glucose POC Glucose 97 127 H Calcium C-Reactive Protein Procalcitonin Specimen Hemolysis 02/02/20 02/02/20 07:32 07:48 WBC RBC Hgb Hct MCV MCH MCHC RDW Std Deviation RDW Coeff of [place] Plt Count MPV Sodium 136 Potassium 4.0 Chloride 105 Carbon Dioxide 24 Anion Gap 7.0 BUN 14 Creatinine 1.16 Est Cr Clr Drug Dosing 92.3 Est GFR ( Amer) 74.6 Est GFR (Non-Af Amer) 64.3 BUN/Creatinine Ratio 12.2 Glucose 131 H POC Glucose 134 H Calcium 8.8 C-Reactive Protein 4.96 H Procalcitonin Specimen Hemolysis Microbiology 01/30/20 03:00 Urine,Clean Catch Urine Culture - Final Escherichia coli 01/30/20 03:56 Blood Aerobic Blood Culture - Final Escherichia coli 01/30/20 03:56 Blood Anaerobic Blood Culture - Final Escherichia coli 01/30/20 04:41 Blood Aerobic Blood Culture - Preliminary No growth in Aerobic bottle after 48 hours. 01/30/20 04:41 Blood Anaerobic Blood Culture - Preliminary No growth in Anaerobic bottle after 48 hours. (1) UTI (urinary tract infection) Hematuria presence: without hematuria Urinary tract infection type: site unspecified Qualified Code(s): N39.0 - Urinary tract infection, site not specified
[2020-02-02] MEDS: levoFLOXacin 750 MG TAB PO SCH (12:19)
[2020-02-02] MEDS ORDERED: PHENAZOPYRIDINE HCL 100 MG TAB PO PRN (19:57)
[2020-02-03] MEDS: PIPERACILLIN/TAZOBACTAM 4.5 GM in DEXTROSE 5% 100 ML IV SCH ×2 (00:07→08:20)
[2020-02-03] MEDS: HEPARIN SOD 5,000 UNIT/0.5 ML VIAL SQ SCH ×2 (05:42→13:31)
[2020-02-03 07:12] LABS: Hematocrit (blood only) 42.1 % (42-52); Hemoglobin 14.1 g/dL (14.0-18.0); Mean Corpuscular Hemoglobin 29.3 pg (25-34); Mean Corpuscular Hgb Conc 33.5 g/dL (32-36); Mean Corpuscular Volume 87.5 fL (80-100); Mean Platelet Volume 10.3 fL (7.4-10.4); Platelet Count 280 K/uL (130-400); RDW Coefficient of Variation 14.1 % (11.5-14.5); RDW Standard Deviation 45.3 fL (36.4-46.3); Red Blood Count 4.81 M/uL (4.7-6.1); White Blood Count 6.65 K/uL (4.8-10.8)
[2020-02-03 07:37] LABS: BUN Creatinine Ratio 11.6 (10-20); C Reactive Protein 2.65 mg/dl (0-0.29); Calcium 8.8 mg/dl (8.5-10.1); Creatinine Clr Calc Pharmacy 90.7 ml/min; Est GFR (African American) 73.1; Potassium 3.8 mmol/L (3.5-5.1)
[2020-02-03] MEDS: PANTOprazole 40 MG TAB PO SCH (08:08)
[2020-02-03] MEDS: METOPROLOL TARTRATE 100 MG TAB PO SCH (08:08)
[2020-02-03] MEDS: LORATADINE 10 MG TAB PO SCH (08:08)
[2020-02-03] MEDS: INSULIN ASPART 100 UNITS/ML 3 ML PEN SC SCH ×2 (08:10→12:28)
[2020-02-03] MEDS: levoFLOXacin 750 MG TAB PO SCH (12:23)
--- NOTE | 2020-02-03 15:42 | Hospitalist Progress Note ---
Date of Service February 03, 2020 Assessment & Plan (1) Severe sepsis: Met criteria for severe sepsis per current [facility] definition (fever, tachycardia, tachypnea, leukocytosis, lactate > 2). Hemodynamically stable. Lactate trended. Received fluid resuscitation. Blood cultures obtained. Received broad spectrum antibiotics. Source = urinary tract as discussed below. (2) UTI (urinary tract infection): Presented with fever, urinary frequency, urinary hesitancy. No dysuria or gross hematuria. UA showed nitrites, leukocyte esterase, RBC's, WBC's, bacteria. Urine and blood cultures obtained and patient started on IV piperacillin / tazobactam. No renal calculi or other urinary tract abnormalities on CT. Suspected prostatitis. Rectal exam 02/01- prostate boggy, nontender (exam limited, could not reach superior gland) Urine and blood cultures growing E coli, pansensitive. WBC 12,810 --> 15,760 --> --> 6,650. Procalcitonin 3.47 --> 1.05. CRP 4.96 --> 2.65. ESR = 60. Checked repeat blood cultures to ensure clearance of bacteremia- negative at 48 hrs. No contraindications for quinolones. Transitioned to PO therapy with levofloxacin 500 mg daily. Current guidelines recommend 4-6 weeks of therapy, depending on clinical response and inflammatory markers. Will need outpatient follow-up with Urology for recurrent UTI's. CT images to be sent to [facility] [facility]. (3) Abnormal CT scan, chest: CTA chest negative for PE. Small left infrahilar infiltrate noted. ? pneumonia. Patient has an occasional cough that he attributes to seasonal allergies. Doubt that he had pneumonia bases on symptoms / exam. Initially received doxycycline and piperacillin / tazobactam. Transitioning to levofloxacin for pulmonary + urinary tract coverage. (4) Hypertension: Hemodynamically stable. Continue metoprolol. (5) GERD (gastroesophageal reflux disease): Continue PPI. (6) Diabetes mellitus type 2, controlled: Usually managed with metformin. Hgb A1c = 7.1. Held metformin during hospital stay. Received insulin coverage as needed. FBS today = 133. Resume metformin upon discharge. (7) Dyslipidemia: Continue atorvastatin. (8) Lower extremity edema: Lower extremity edema, L > R. Venous duplex lower extremities negative for DVT. (9) DVT prophylaxis: SQ heparin. Ambulate. (10) Discharge planning issues: Discharge to home. Medical follow-up with Herbert Herndon PA-C. Urology follow-up at [facility] [address]. Admission and Anticipated Discharge Date Admission Date: January 30, 2020 Subjective Recheck for sepsis and other problems. Patient seen in their room around 1400. Doing well. No fever. No flank pain. No dysuria or hematuria. No urinary hesitancy or frequency. No diarrhea. Ambulating. Ready to go home. Physical Exam Constitutional: no acute distress Respiratory: no respiratory distress Auscultation: lungs clear to auscultation bilaterally Cardiovascular: Rate/Rhythm: regular rate and regular rhythm Heart Sounds: no gallop and no murmur Vessels: no JVD Extremities: + edema (RLE trace, LLE 1+); no calf tenderness Gastrointestinal (Abdomen): normal bowel sounds, soft, nontender, no hepatosplenomegaly Musculoskeletal: Extremities: no cyanosis Skin: no rashes, warm and dry Psychiatric: Orientation: alert and oriented x 3 Results & Data Results & Data ([facility]) Vital Signs (Past 12 Hours) Vital Signs Temp Pulse Resp BP Pulse Ox 02/03/20 11:30 63 153/82 H 02/03/20 07:20 37.0 C 82 20 174/84 H 95 (1) UTI (urinary tract infection) Hematuria presence: without hematuria Urinary tract infection type: site unspecified Qualified Code(s): N39.0 - Urinary tract infection, site not specified
--- NOTE | 2020-02-04 08:39 | Discharge Summary ---
Date of Service Date of Admission: 01/30/20 Date of Discharge: 02/03/20 Admission HPI Per Admitting Provider This is a 69-year-old male with past medical history significant for diabetes, hypertension, hyperlipidemia, GERD, obesity, history of sepsis from urinary tract infection in the past with gram-negative bacteremia, who presents with urinary frequency. The patient states that since yesterday at 5:00 p.m., he is having increased frequency of urination, every 10 minutes he has to go to bathroom. Denies any burning micturition or blood in the urine, but was having some fever at home, some nausea, mild abdominal discomfort. He has also felt short of breath at the same time. He has cough from his sinuses on and off, does not bring any phlegm, and some runny nose. No loss of smell or taste. No recent travel. No exposure to COVID. Lives with his . Ambulates okay. In September, he tore a ligament in his left ankle and it is not getting better, but he is ambulating okay. He is supposed to get MRI scan soon. Currently in the ER, when he came in, he was tachypneic and tachycardia and had temperature spike. Received daptomycin and imipenem. UA was positive. Lactic acid was 2.2, repeat was 3.1. His D-dimer is elevated at 880. CTA of the chest was done, it was negative for PE, but there is small left infrahilar parenchymal infiltrate. Because of the pneumonia and shortness of breath, COVID was ordered, results are pending. Denies any chest pain. Has some mild headache, has some blurred vision and supposed to get cataract surgery coming Monday. Has some runny nose from his allergies. No sore throat, no earache, no dysphagia. Appetite is okay. Sleeps okay. Normal bowel movements. Has mild edema in his left lower extremity. No rash. Ambulates okay. Principal Diagnosis severe sepsis urinary tract infection - E coli, suspected prostatitis gram negative bacteremia- E coli Discharge Data Allergies Allergy/AdvReac Type Severity Reaction Status Date / Time No Known Allergies Allergy Unverified 01/30/20 03:47 Consultations 01/30/20 06:06 ED Decision to Admit Stat 01/30/20 10:30 Consult Case Management - Discharge Planning Routine Ordered Studies 01/30/20 04:33 CT angio chest PE protocol Urgent 01/30/20 07:24 CT abd pelvis wo con Stat 01/31/20 13:44 US venous doppler LE Urgent Hospital Course (1) Severe sepsis: Met criteria for severe sepsis per current CMS definition (fever, tachycardia, tachypnea, leukocytosis, lactate > 2). Hemodynamically stable. Lactate trended. Received fluid resuscitation. Blood cultures obtained. Received broad spectrum antibiotics. Source = urinary tract as discussed below. (2) UTI (urinary tract infection): Presented with fever, urinary frequency, urinary hesitancy. No dysuria or gross hematuria. UA showed nitrites, leukocyte esterase, RBC's, WBC's, bacteria. Urine and blood cultures obtained and patient started on IV piperacillin / tazobactam. No renal calculi or other urinary tract abnormalities on CT. Suspected prostatitis. Rectal exam 02/01- prostate boggy, nontender (exam limited, could not reach superior gland) Urine and blood cultures growing E coli, pansensitive. WBC 12,810 --> 15,760 --> --> 6,650. Procalcitonin 3.47 --> 1.05. CRP 4.96 --> 2.65. ESR = 60. Checked repeat blood cultures to ensure clearance of bacteremia- negative at 48 hrs. No contraindications for quinolones. Transitioned to PO therapy with levofloxacin 500 mg daily. Current guidelines recommend 4-6 weeks of therapy, depending on clinical response and inflammatory markers. Will need outpatient follow-up with Urology for recurrent UTI's. CT images to be sent to [facility]. (3) Gram-negative bacteremia: E coli bacteremia due to UTI as discussed above. Repeat blood cultures 01/31 negative at 48 hours. (4) Abnormal CT scan, chest: CTA chest negative for PE. Small left infrahilar infiltrate noted. ? pneumonia. Patient has an occasional cough that he attributes to seasonal allergies. Doubt that he had pneumonia bases on symptoms / exam. Initially received doxycycline and piperacillin / tazobactam. Transitioning to levofloxacin for pulmonary + urinary tract coverage. (5) Hypertension: Hemodynamically stable. Continue metoprolol. (6) GERD (gastroesophageal reflux disease): Continue PPI. (7) Diabetes mellitus type 2, controlled: Usually managed with metformin. Hgb A1c = 7.1. Held metformin during hospital stay. Received insulin coverage as needed. FBS today = 133. Resume metformin upon discharge. (8) Dyslipidemia: Continue atorvastatin. (9) Lower extremity edema: Lower extremity edema, L > R. Venous duplex lower extremities negative for DVT. (10) COVID-19 ruled out: [employer] swab for SARS-CoV-2 PCR negative 01/30/20. (11) DVT prophylaxis: SQ heparin. Ambulate. (12) Discharge planning issues: Discharge to home. Medical follow-up with Herbert Herndon PA-C. Urology follow-up at [facility]. Total Time Total Time Spent Total Time Spent (In Minutes): 40 Discharge Plan Discharge Items Patient Disposition: Home - Self-Care Reason For Visit: fever, trouble urinating Discharge Diagnosis: sepsis urinary tract infection (suspected prostate infection) Condition on Discharge: Good Activity: Resume your previous activity Non-emergency contact: Primary Care Provider, Hospitalist and Urologist Call non-emergency contact if: you have any medication questions, your symptoms worsen and your temperature is above 101 Follow-up/Referrals: Herbert Herndon PA-C [Primary Care Provider] - 02/10/20 9:20 am (02/10/2020 9:20 AM Herbert Herndon Jr., PA-C Department [facility] ) Diet: Carb Consistent or DM2 and Heart Healthy Addtl Attending Provider Instructions: MEDICATION CHANGES: levofloxacin (Levaquin) 500 mg daily for 4-6 weeks Length of treatment will depend on how you feel and what your blood tests show. Prescription will be for 14 days with 2 refills. SUMMARY OF TEST RESULTS: Urine and blood cultures grew E coli. CT scan did not show any kidney stones or other blockage in urinary system. RECOMMENDATIONS FOR FOLLOW-UP: Please ask for a referral to see Urology regarding recurrent urinary tract infections. OTHER INSTRUCTIONS: Seek medical attention if you have: * temperature above 101 * chest pain or trouble breathing * abdominal pain, nausea, vomiting * diarrhea, dark stools or bloody stools * pain in tendons (for example, pain in back of heel) * any unanswered questions or concerns Call 911 if symptoms are severe. Please take good care of yourself. Call if you have any questions or problems. You can reach a [facility] hospitalist on duty at [facility] 24 hours a day by calling [phone]. My cell # is [phone]. Pending Studies at Discharge: Yes (final culture results) Stand-Alone Forms: My [facility], Smoking Cessation Medications and DC Order Prescriptions: New levofloxacin 500 mg tablet 500 mg PO DAILY 14 Days Qty: 14 RF: 2 Continued metoprolol tartrate 100 mg tablet 100 mg PO DAILY RF: 0 esomeprazole magnesium 40 mg capsule,delayed release(DR/EC) 40 mg PO DAILY RF: 0 loratadine 10 mg tablet 10 mg PO DAILY RF: 0 metformin 500 mg Tablet 500 mg PO BID RF: 0 naproxen 500 mg Tablet 500 mg PO DIRECTED PRN (Reason: Pain) RF: 0 atorvastatin [Lipitor] 20 mg Tablet 20 mg PO DAILY RF: 0 Discharge Orders: Discharge Order (Routine); Ordered 02/03/20 Ordered By: Herbert Nieto/Other Patient Handouts: Diabetes Type 2 Managing Admission Data Admit Date/Time: 01/30/20 06:46 Attending Provider: Herbert Ervin Admit Provider: Ramses Romano Primary Care Provider: Herbert Herndon Other Providers: Ramses Romano Other Interventions: Discharge Summary Assessment (RN) Last Done: 02/03/20 17:01 DC Date/Time DO NOT enter until pt leaves facility: 02/03/20 18:08
== END 2020-02-03 18:08 | disposition home or self-care (01) | DRG 871 ==
LOC: ED 02:54 → 1E 06:46 → SUATTDRO 06:46 → 1E 09:52 → 2N 02-01 12:10